=== PATIENT | male | born 1955 | race Caucasian/White ===

== ENCOUNTER → 2023-11-19 16:58 | Outpatient (CLI) | payer MEDICARE, BC, SELFPAY ==
[2023-11-19 19:08] LABS: Vitamin B12 565 pg/mL (239-931)
[2023-11-20 16:15] LABS: Hep C Virus Ab w/Reflex Quant REACTIVE s/c (NEGATIVE)
== END ==
PROVIDERS: Family Provider Family Medicine; PCP Family Medicine; Referring Provider Family Medicine; Visit Provider Family Medicine
DX: E78.5 Hyperlipidemia, unspecified (principal); M54.50 Low back pain, unspecified; G89.29 Other chronic pain; F31.9 Bipolar disorder, unspecified
CPT/HCPCS: 36415; 82607; 86803; 87522

== ENCOUNTER → 2023-12-08 09:12 | Outpatient (CLI) | payer MEDICARE, BC, SELFPAY ==
[2023-12-08 09:51] LABS: Add Manual Diff / Slide Review NO; Basophils Absolute Auto 0 /uL (0-100); Basophils Percent Auto 0.9 % (0-2); Eosinophils Absolute Auto 200 /uL (0-450); Eosinophils Percent Auto 3.7 % (2-4); Lymphocytes Absolute Auto 900 /uL (1100-4500); Lymphocytes Percent Auto 19.4 % (25-40); Mean Corpuscular HGB Conc 34.2 % (30-36); Mean Corpuscular Hemoglobin 33.7 PG (26-34); Mean Corpuscular Volume 98.6 fL (80-100); Monocytes Absolute Auto 500 /uL (0-900); Monocytes Percent Auto 10.8 % (3-14); Neutrophils Absolute Auto 3100 /uL (1500-7000); Neutrophils Percent Auto 65.2 % (50-75); Platelet Count 336 X10^3/uL (150-400); Red Blood Cell Count 3.86 X10^6/uL (4.5-5.9); Red Cell Distribution Width 13.9 % (11.6-14.8); White Blood Cell Count 4.8 X10^3/uL (4.5-11.0)
[2023-12-08 10:11] LABS: Alanine Aminotransferase 26 IU/L (<50); Albumin 4.3 g/dL (3.5-5.0); Albumin Globulin Ratio 1.8 (1.0-2.8); Alkaline Phosphatase 71 U/L (38-126); Aspartate Aminotransferase 29 IU/L (17-59); BUN Creatinine Ratio 16.7 (6-22); Bilirubin Total 0.5 mg/dL (0.2-1.3); Blood Urea Nitrogen 19 mg/dL (9-20); Calcium 9.4 mg/dL (8.4-10.2); Carbon Dioxide 26 mmol/L (22-32); Chloride 108 mmol/L (98-107); Cholesterol 185 mg/dL (140-199); Estimated Glomerular Filt Rate > 60 mL/min (>60); Globulin 2.4 g/dL (1.7-4.1); Glucose 100 mg/dL (80-110); HDL Cholesterol 67 mg/dL (40-60); HEMOLYSIS < 15 (0-50); LDL Cholesterol Calculated 92 mg/dL (<100); Potassium 5.2 mmol/L (3.4-5.1); Sodium 138 mmol/L (137-145); Total Protein 6.7 g/dL (6.3-8.2); Triglycerides 132 mg/dL (35-150)
[2023-12-08 10:41] LABS: TSH w/ Reflex to FT4 0.79 uIU/mL (0.47-4.68)
[2023-12-08 10:59] LABS: Vitamin B12 588 pg/mL (239-931)
== END ==
PROVIDERS: Family Provider Family Medicine; PCP Family Medicine; Referring Provider Family Medicine; Visit Provider Family Medicine
DX: E78.2 Mixed hyperlipidemia (principal); K22.70 Barrett's esophagus without dysplasia; R53.83 Other fatigue
CPT/HCPCS: 36415; 80053; 80061; 82607; 84443; 85025

== ENCOUNTER 2023-12-31 09:45 | Outpatient (RCR) | payer MEDICARE, BC, SELFPAY ==
--- NOTE | 2023-10-29 10:14 | PT.OIE ---
Current Diagnoses Other chronic pain (10/29/23) Low back pain, unspecified (10/29/23) Past Medical History (Last Updated 10/28/23 @ 21:30 by Dianna Stone) Aldrich's esophagus Bipolar 1 disorder Cataracts, bilateral (~2019) Chronic low back pain Hearing loss (~2014) Hepatitis C Prostate cancer (~2020) Tinnitus (~1999) Past Surgical History (Last Updated 10/28/23 @ 21:30 by Dianna Stone) Anesthesia History of laminectomy (~07/2023) Visit Care Team Role Provider Type Kellen Villafuerte DO Attending Provider Physician Family Provider Primary Care Provider Referring Provider Specialty: Family Practice Address: [address] [place] [address], [facility] [address], [place], [facility] Email: [email or web address] [facility] Initial Evaluation PT-OP-A Visit Information Start: 10/28/23 07:26 Freq: Status: Active Protocol: Document 10/29/23 08:19 MB (Rec: 10/29/23 08:56 [id number]) Out-Patient Physical Therapy Visit Information Visit Information Visit Type Initial Evaluation Visit Note Medicare, for Life Visit Start Time 08:19 Visit Stop Time 08:59 Visit Number 1 Number of HEATER HELPER FORGE Visits 0 Evaluation Information Evaluation Date 10/29/23 Precautions Precautions Lami L2-14 July 2023 PT-OP-B Current Condition Start: 10/28/23 07:26 Freq: Status: Active Protocol: Document 10/29/23 08:19 MB (Rec: 10/29/23 08:56 [id number]) Current Condition History of Current Condition Onset Date Back surgery July 2023 Current Complaints Leg fatigue and left SI pain and anterior left thigh pain History of Current Condition Pt reports laminectomy L2,3,4 in [place] in July of this year. Pt reports progressive history of feet going numb and sciatic pain. 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 Pt got PT in [place]. He brings in exercises. He was getting better and then he began to reverse. A week and a half ago, a pipe burst in the house and he was pulling up pipe and he has no place to exercise. Pt saw pain specialist and they are talking about doing injections starting November 19. Generally, he sleeps pretty good. He does not use pillow support between legs. Prior Treatments and Tests Laminectomy, PT Treatment Goals Patient/Caregiver Goals Decrease the pain and to return to strengthening PT-OP-C Subjective Start: 10/28/23 07:26 Freq: Status: Active Protocol: Document 10/29/23 08:19 MB (Rec: 10/29/23 08:56 MB [id number]) OP-PT Subjective Patient Comments Patient Comments See history of current condition Patient Questionnaires Oswestry Low Back Index Oswestry Score 15 Oswestry Impairment 20 to 39% Impaired (Score 20- 39) PT-OP-G Mobility & Gait Start: 10/28/23 07:26 Freq: Status: Active Protocol: Document 10/29/23 08:19 MB (Rec: 10/29/23 08:56 MB [id number]) OP Gait Assessment Comments Gait Comments Gait assessment: pt does not always clear right foot and he presents with little arm swing and pelvic movement with gait as well as descreased step-length with gait PT-OP-J Posture/Palpation/Skin Start: 10/28/23 07:26 Freq: Status: Active Protocol: Document 10/29/23 08:19 MB (Rec: 10/29/23 08:56 MB [id number]) Posture Evaluation Comments Posture Comments Standing in barefoot: lower thoracic and upper lumbar hypertension, protrusion at paraspinal muscles and no real convexity right or left; right inferior scapula lower than the left; mild left convexity mid thoracic spine; left iliac crest mildly higher than the right; B flat feet and he reports arthritis in feet and more noticeable on the left, increased Sapphire angle , greater on the right. Very limited B SB, greater to the left and scar left side lumbar area; flexion with fingers almost one foot off the ground, normal posture with trunk mildly flexed over pelvis and active extension moves posture into neutral and pt reports increased left thigh pain PT-OP-K Range of Motion Start: 10/28/23 07:26 Freq: Status: Active Protocol: Document 10/29/23 08:19 MB (Rec: 10/29/23 08:56 MB [id number]) Hip Goniometric Range of Motion Hip ROM Limitations Comments SLR passive: right to 50 deg and left to 40 deg PT-OP-M Strength Start: 10/28/23 07:26 Freq: Status: Active Protocol: Document 10/29/23 08:19 MB (Rec: 10/29/23 08:56 MB [id number]) Hip Strength Hip Manual Muscle Testing Left Flexion (L2) 4- Good- Extension (S1) 4 Good Abduction 4 Good Adduction 4 Good Right Flexion (L2) 4+ Good+ Extension (S1) 4 Good Abduction 4+ Good+ Adduction 4+ Good+ Comments All MMT in supine Knee Strength Knee Manual Muscle Testing Left Flexion (S2) 5 Normal Extension (L3) 4+ Good+ Comments *with MMT knee, left great toe curls into flexion Right Flexion (S2) 5 Normal Extension (L3) 5 Normal Ankle/Foot Strength Ankle and Foot Manual Muscle Testing Left Dorsiflexion (L4) 5 Normal Right Dorsiflexion (L4) 5 Normal Toe Strength Toe Manual Muscle Testing Left Great Toe Extension 5 Normal Right Great Toe Extension 5 Normal Comments B plantar feet numbness PT-OP-Q Treatments Start: 10/28/23 07:26 Freq: Status: Active Protocol: Document 10/29/23 08:19 MB (Rec: 10/29/23 08:56 MB [id number]) Therapeutic Exercises Supine Exercises Pelvic realignment exercises Side bilateral Reps/Minutes 5 reps, 3 sec hold all exercises Comments Feet together ball squeeze, knee opp ankle iso, thigh press down Self-Care/Home Management Treatment Education Other Education Benefits of pillow support between legs in sidelying for sleeping and education about brian out [facility] and pt is agreeable to this PT-OP-T Assessment and Plan Start: 10/28/23 07:26 Freq: Status: Active Protocol: Document 10/29/23 08:19 MB (Rec: 10/29/23 08:56 MB [id number]) Physical Therapy Assessment Rehab Potential Rehabilitation Potential Fair Evaluation Complexity Number of Personal Factors/Comorbidities 1-2 Number of Body Systems Impaired 1-2 Clinical Presentation at Evaluation Evolving Impairments Impairments Balance,Gait,Pain,Posture,ROM, Sensation,Soft Tissue Mobility ,Strength Goals 3 Impairment Need for HEP review and progression Painter Plate Goal (LTG) Pt will perform progressive HEP with I including pelvic realignment, flexibility, balance and core and LE strengthening exercises to improve pain and strength. LTG Duration 8 weeks 2 Impairment Evidence of imbalance and c/o fatigue with increased gait distance Painter Plate Goal (LTG) Pt will gait train at least 1300 feet in 6 minutes to improve community ambulation and functional leg strength when spine loaded. LTG Duration 8 weeks 1 Impairment Oswestry reflects 24% impairment Halfway Goal (LTG) Pt will present with Oswestry to reflect no more than 15% impairment to improve quality of life and pain. 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 He reports undergoing laminectomy L2-4 in July when in [place]. He and will live [address] [facility] and 6 months in [place]. They are remodeling their home here and he states that he had contracted out most of the work but states they did have to tear up [place] last week. He was getting PT in [place] and was doing better but then had a decline with recurrence of leg weakness when up walking and left thigh and left SI pain. He presents with pelvic oliquities, decreased spinal mobility and left hip weakness today. He scuffs his right foot with gait. He will benefit from PT to improve pelvic alignment, flexibility, strength and balance. Barriers include known spinal changes and multi-joint arthritis. Pt is agreeable to ongoing brian out of heavy labor with remodel, sleeping position education to support pelvis, consider getting into the pool and PT plan for OPPT. Physical Therapy Plan Frequency and Duration Frequency of Treatment 2x/Week Duration of treatment (weeks) 8 Plan of Care Start Date 10/29/23 Plan of Care End Date 12/29/23 Therapeutic Interventions Therapeutic Interventions Balance Training,Canalithic Repositioning,Gait Training, Home Exercise Program,Joint Mobilizations,Manual Therapy, Neuromuscular Re-education, Patient/Caregiver Education, Self-Care/Home Management,Soft Tissue Mobilization,Taping, Therapeutic Activities, Therapeutic Exercises Modalities Cold Pack/Ice Massage,Electric Stimulation,Hot Packs, Ultrasound Next Visit Focus/Plan Next Note Type Treatment Note Next Visit Plan Review pelvic realignment exercises, review exercises he brings in from previous PTs, initiate manual work
--- NOTE | 2023-10-29 10:14 | PT.OPPOC ---
Physical, Occupational & Speech Therapy At [facility] Current Diagnoses Other chronic pain (10/29/23) Low back pain, unspecified (10/29/23) Visit Care Team Role Provider Type Kellen Villafuerte DO Attending Provider Physician Family Provider Primary Care Provider Referring Provider Specialty: Family Practice Address: [address] [place] [address], [address], [facility] Email: [email or web address] Plan Of Care PT-OP-T Assessment and Plan Start: 10/28/23 07:26 Freq: Status: Active Protocol: Document 10/29/23 08:19 MB (Rec: 10/29/23 08:56 MB [id number]) Physical Therapy Assessment Rehab Potential Rehabilitation Potential Fair Evaluation Complexity Number of Personal Factors/Comorbidities 1-2 Number of Body Systems Impaired 1-2 Clinical Presentation at Evaluation Evolving Impairments Impairments Balance,Gait,Pain,Posture,ROM, Sensation,Soft Tissue Mobility ,Strength Goals 3 Impairment Need for HEP review and progression Senior Care Goal (LTG) Pt will perform progressive HEP with I including pelvic realignment, flexibility, balance and core and LE strengthening exercises to improve pain and strength. LTG Duration 8 weeks 2 Impairment Evidence of imbalance and c/o fatigue with increased gait distance Senior Care Goal (LTG) Pt will gait train at least 1300 feet in 6 minutes to improve community ambulation and functional leg strength when spine loaded. LTG Duration 8 weeks 1 Impairment Oswestry reflects 24% impairment Service Car Operator Goal (LTG) Pt will present with Oswestry to reflect no more than 15% impairment to improve quality of life and pain. 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 He reports undergoing laminectomy L2-4 in July when in [place]. He and will live 6 months in [facility] and 6 months in [place]. They are remodeling their home here and he states that he had contracted out most of the work but states they did have to tear up [place] last week. He was getting PT in [place] and was doing better but then had a decline with recurrence of leg weakness when up walking and left thigh and left SI pain. He presents with pelvic oliquities, decreased spinal mobility and left hip weakness today. He scuffs his right foot with gait. He will benefit from PT to improve pelvic alignment, flexibility, strength and balance. Barriers include known spinal changes and multi-joint arthritis. Pt is agreeable to ongoing brian out of heavy labor with remodel, sleeping position education to support pelvis, consider getting into the pool and PT plan for OPPT. Physical Therapy Plan Frequency and Duration Frequency of Treatment 2x/Week Duration of treatment (weeks) 8 Plan of Care Start Date 10/29/23 Plan of Care End Date 12/29/23 Therapeutic Interventions Therapeutic Interventions Balance Training,Canalithic Repositioning,Gait Training, Home Exercise Program,Joint Mobilizations,Manual Therapy, Neuromuscular Re-education, Patient/Caregiver Education, Self-Care/Home Management,Soft Tissue Mobilization,Taping, Therapeutic Activities, Therapeutic Exercises Modalities Cold Pack/Ice Massage,Electric Stimulation,Hot Packs, Ultrasound Next Visit Focus/Plan Next Note Type Treatment Note Next Visit Plan Review pelvic realignment exercises, review exercises he brings in from previous PTs, initiate manual work Plan of Care Dates Plan of Care Start Date 10/29/23 Plan of Care End Date 12/29/23 Electronically Signed by: Meron Ríos, PT 10/29/23 1014 If you are in agreement with this Plan of Care, please return a signed and dated copy. I have reviewed this Plan of Care and certify that the skilled therapy services above are required to meet the patient?s needs. Physician Signature Date Printed Name and Credentials Clinical Instructor Signature Printed Name and Credentials
--- NOTE | 2023-11-03 09:01 | PT.OTN ---
Current Diagnoses Other chronic pain (11/03/23) Low back pain, unspecified (11/03/23) Physical Therapy Treatment Note PT-OP-A Visit Information Start: 10/28/23 07:26 Freq: Status: Active Protocol: Document 11/03/23 08:15 MB (Rec: 11/03/23 09:00 MB [id number]) Out-Patient Physical Therapy Visit Information Visit Information Visit Type Treatment Note Visit Note Medicare, for Life Progress note by 11/28/23 or before Visit Start Time 08:15 Visit Stop Time 08:55 Visit Number 2 Number of TELEMETRY NURSE Visits 0 Evaluation Information Evaluation Date 10/29/23 Precautions Precautions Lami L2-14 July 2023 PT-OP-B Current Condition Start: 10/28/23 07:26 Freq: Status: Active Protocol: Document 10/29/23 08:19 MB (Rec: 10/29/23 08:56 MB [id number]) Current Condition History of Current Condition Onset Date Back surgery July 2023 Current Complaints Leg fatigue and left SI pain and anterior left thigh pain History of Current Condition Pt reports laminectomy L2,3,4 in [place] in July of this year. Pt reports progressive history of feet going numb and sciatic pain. 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 Pt got PT in [place]. He brings in exercises. He was getting better and then he began to reverse. A week and a half ago, a pipe burst in the house and he was pulling up pipe and he has no place to exercise. Pt saw pain specialist and they are talking about doing injections starting November 19. Generally, he sleeps pretty good. He does not use pillow support between legs. Prior Treatments and Tests Laminectomy, PT Treatment Goals Patient/Caregiver Goals Decrease the pain and to return to strengthening PT-OP-C Subjective Start: 10/28/23 07:26 Freq: Status: Active Protocol: Document 11/03/23 08:15 MB (Rec: 11/03/23 09:00 MB [id number]) OP-PT Subjective Patient Comments Patient Comments Pt forgot his HEP exercise handouts from [place]. He took a lot of medication and went dancing on Friday night. PT-OP-G Mobility & Gait Start: 10/28/23 07:26 Freq: Status: Active Protocol: Document 10/29/23 08:19 MB (Rec: 10/29/23 08:56 MB [id number]) OP Gait Assessment Comments Gait Comments Gait assessment: pt does not always clear right foot and he presents with little arm swing and pelvic movement with gait as well as descreased step-length with gait PT-OP-J Posture/Palpation/Skin Start: 10/28/23 07:26 Freq: Status: Active Protocol: Document 10/29/23 08:19 MB (Rec: 10/29/23 08:56 MB [id number]) Posture Evaluation Comments Posture Comments Standing in barefoot: lower thoracic and upper lumbar hypertension, protrusion at paraspinal muscles and no real convexity right or left; right inferior scapula lower than the left; mild left convexity mid thoracic spine; left iliac crest mildly higher than the right; B flat feet and he reports arthritis in feet and more noticeable on the left, increased Sapphire angle , greater on the right. Very limited B SB, greater to the left and scar left side lumbar area; flexion with fingers almost one foot off the ground, normal posture with trunk mildly flexed over pelvis and active extension moves posture into neutral and pt reports increased left thigh pain PT-OP-K Range of Motion Start: 10/28/23 07:26 Freq: Status: Active Protocol: Document 10/29/23 08:19 MB (Rec: 10/29/23 08:56 MB [id number]) Hip Goniometric Range of Motion Hip ROM Limitations Comments SLR passive: right to 50 deg and left to 40 deg PT-OP-M Strength Start: 10/28/23 07:26 Freq: Status: Active Protocol: Document 10/29/23 08:19 MB (Rec: 10/29/23 08:56 MB [id number]) Hip Strength Hip Manual Muscle Testing Left Flexion (L2) 4- Good- Extension (S1) 4 Good Abduction 4 Good Adduction 4 Good Right Flexion (L2) 4+ Good+ Extension (S1) 4 Good Abduction 4+ Good+ Adduction 4+ Good+ Comments All MMT in supine Knee Strength Knee Manual Muscle Testing Left Flexion (S2) 5 Normal Extension (L3) 4+ Good+ Comments *with MMT knee, left great toe curls into flexion Right Flexion (S2) 5 Normal Extension (L3) 5 Normal Ankle/Foot Strength Ankle and Foot Manual Muscle Testing Left Dorsiflexion (L4) 5 Normal Right Dorsiflexion (L4) 5 Normal Toe Strength Toe Manual Muscle Testing Left Great Toe Extension 5 Normal Right Great Toe Extension 5 Normal Comments B plantar feet numbness PT-OP-Q Treatments Start: 10/28/23 07:26 Freq: Status: Active Protocol: Document 11/03/23 08:15 MB (Rec: 11/03/23 09:00 MB [id number]) Therapeutic Exercises Supine Exercises MWM hamstring and calf stretch Comments 30-40 pumps of calf of stretching leg Hip rotator stretch Comments Ankle across opposite knee in hook lying and feels in hip Hook lying clam Comments Pt demo and states that he uses a band and ed to perform lightly Bridge Comments Pt demos this and reports pressing out with band and states gentle Pelvic realignment exercises Side bilateral Reps/Minutes 5 reps, 3 sec hold all exercises Comments Feet together ball squeeze, knee opp ankle iso, thigh press down Sidelying Exercises Hip extension Comments Demo with rocking pelvis moves and ed to stop Sitting Exercises Long sitting stretch over leg Comments Tight hamstring and twist, ed to stop Standing Exercises Heel raises Comments Ed to perform with one finger on the counter STS Comments Pt demonstrates and is performing for strengthening, 30 reps Adductor stretch Comments Leaning over counter, flex foward and gentle lean side to side Manual Therapy Treatment Other Other Manual Treatments Pt hook lying with head and legs supported: increased tension B PFs, hamstrings, vastus lateralis and tight right hip, STM and positional release and will benefit from more work PT-OP-T Assessment and Plan Start: 10/28/23 07:26 Freq: Status: Active Protocol: Document 11/03/23 08:15 MB (Rec: 11/03/23 09:00 MB [id number]) Physical Therapy Assessment Rehab Potential Rehabilitation Potential Fair Evaluation Complexity Number of Personal Factors/Comorbidities 1-2 Number of Body Systems Impaired 1-2 Clinical Presentation at Evaluation Evolving Impairments Impairments Balance,Gait,Pain,Posture,ROM, Sensation,Soft Tissue Mobility ,Strength Goals 3 Impairment Need for HEP review and progression Weigh Tank Operator Goal (LTG) Pt will perform progressive HEP with I including pelvic realignment, flexibility, balance and core and LE strengthening exercises to improve pain and strength. LTG Duration 8 weeks 2 Impairment Evidence of imbalance and c/o fatigue with increased gait distance Weigh Tank Operator Goal (LTG) Pt will gait train at least 1300 feet in 6 minutes to improve community ambulation and functional leg strength when spine loaded. LTG Duration 8 weeks 1 Impairment Oswestry reflects 24% impairment Mcc Goal (LTG) Pt will present with Oswestry to reflect no more than 15% impairment to improve quality of life and pain. LTG Duration 8 weeks Assessment Summary Assessment Pt demos exercises he remembers from previous PTs and took out several that push hamstring and spine ability. Ed pt to start gaining awareness of gentle stretching . Physical Therapy Plan Frequency and Duration Frequency of Treatment 2x/Week Duration of treatment (weeks) 8 Plan of Care Start Date 10/29/23 Plan of Care End Date 12/29/23 Therapeutic Interventions Therapeutic Interventions Balance Training,Canalithic Repositioning,Gait Training, Home Exercise Program,Joint Mobilizations,Manual Therapy, Neuromuscular Re-education, Patient/Caregiver Education, Self-Care/Home Management,Soft Tissue Mobilization,Taping, Therapeutic Activities, Therapeutic Exercises Modalities Cold Pack/Ice Massage,Electric Stimulation,Hot Packs, Ultrasound Next Visit Focus/Plan Next Note Type Treatment Note Next Visit Plan Review exercises he brings in from previous PTs, manual work Eventually, consider [place] and add hip extension and ankle DF and ER
--- NOTE | 2023-11-05 09:45 | PT.OTN ---
Current Diagnoses Other chronic pain (11/05/23) Low back pain, unspecified (11/05/23) Physical Therapy Treatment Note PT-OP-A Visit Information Start: 10/28/23 07:26 Freq: Status: Active Protocol: Document 11/05/23 08:59 MB (Rec: 11/05/23 09:44 MB [id number]) Out-Patient Physical Therapy Visit Information Visit Information Visit Type Treatment Note Visit Note Medicare, for Life Progress note by 11/28/23 or before Visit Start Time 08:59 Visit Stop Time 09:39 Visit Number 3 Number of TRANSPORTER DRIVER Visits 0 Evaluation Information Evaluation Date 10/29/23 Precautions Precautions Lami L2-14 July 2023 PT-OP-B Current Condition Start: 10/28/23 07:26 Freq: Status: Active Protocol: Document 10/29/23 08:19 MB (Rec: 10/29/23 08:56 MB [id number]) Current Condition History of Current Condition Onset Date Back surgery July 2023 Current Complaints Leg fatigue and left SI pain and anterior left thigh pain History of Current Condition Pt reports laminectomy L2,3,4 in [place] in July of this year. Pt reports progressive history of feet going numb and sciatic pain. 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 Pt got PT in [place]. He brings in exercises. He was getting better and then he began to reverse. A week and a half ago, a pipe burst in the house and he was pulling up pipe and he has no place to exercise. Pt saw pain specialist and they are talking about doing injections starting November 19. Generally, he sleeps pretty good. He does not use pillow support between legs. Prior Treatments and Tests Laminectomy, PT Treatment Goals Patient/Caregiver Goals Decrease the pain and to return to strengthening PT-OP-C Subjective Start: 10/28/23 07:26 Freq: Status: Active Protocol: Document 11/05/23 08:59 MB (Rec: 11/05/23 09:44 MB [id number]) OP-PT Subjective Patient Comments Patient Comments Pt left his handouts from [place] at home again. PT-OP-G Mobility & Gait Start: 10/28/23 07:26 Freq: Status: Active Protocol: Document 10/29/23 08:19 MB (Rec: 10/29/23 08:56 MB [id number]) OP Gait Assessment Comments Gait Comments Gait assessment: pt does not always clear right foot and he presents with little arm swing and pelvic movement with gait as well as descreased step-length with gait PT-OP-J Posture/Palpation/Skin Start: 10/28/23 07:26 Freq: Status: Active Protocol: Document 10/29/23 08:19 MB (Rec: 10/29/23 08:56 MB [id number]) Posture Evaluation Comments Posture Comments Standing in barefoot: lower thoracic and upper lumbar hypertension, protrusion at paraspinal muscles and no real convexity right or left; right inferior scapula lower than the left; mild left convexity mid thoracic spine; left iliac crest mildly higher than the right; B flat feet and he reports arthritis in feet and more noticeable on the left, increased Sapphire angle , greater on the right. Very limited B SB, greater to the left and scar left side lumbar area; flexion with fingers almost one foot off the ground, normal posture with trunk mildly flexed over pelvis and active extension moves posture into neutral and pt reports increased left thigh pain PT-OP-K Range of Motion Start: 10/28/23 07:26 Freq: Status: Active Protocol: Document 10/29/23 08:19 MB (Rec: 10/29/23 08:56 MB [id number]) Hip Goniometric Range of Motion Hip ROM Limitations Comments SLR passive: right to 50 deg and left to 40 deg PT-OP-M Strength Start: 10/28/23 07:26 Freq: Status: Active Protocol: Document 10/29/23 08:19 MB (Rec: 10/29/23 08:56 MB [id number]) Hip Strength Hip Manual Muscle Testing Left Flexion (L2) 4- Good- Extension (S1) 4 Good Abduction 4 Good Adduction 4 Good Right Flexion (L2) 4+ Good+ Extension (S1) 4 Good Abduction 4+ Good+ Adduction 4+ Good+ Comments All MMT in supine Knee Strength Knee Manual Muscle Testing Left Flexion (S2) 5 Normal Extension (L3) 4+ Good+ Comments *with MMT knee, left great toe curls into flexion Right Flexion (S2) 5 Normal Extension (L3) 5 Normal Ankle/Foot Strength Ankle and Foot Manual Muscle Testing Left Dorsiflexion (L4) 5 Normal Right Dorsiflexion (L4) 5 Normal Toe Strength Toe Manual Muscle Testing Left Great Toe Extension 5 Normal Right Great Toe Extension 5 Normal Comments B plantar feet numbness PT-OP-Q Treatments Start: 10/28/23 07:26 Freq: Status: Active Protocol: Document 11/05/23 08:59 MB (Rec: 11/05/23 09:44 MB [id number]) Therapeutic Exercises Supine Exercises Raz stretch Side bilateral Comments Opposite knee to chest, 45 sec hold MWM hamstring and calf stretch Comments 30-40 pumps of calf of stretching leg Hip rotator stretch Comments Ankle across opposite knee in hook lying and feels in hip Pelvic realignment exercises Side bilateral Reps/Minutes 5 reps, 3 sec hold all exercises Comments Feet together ball squeeze, knee opp ankle iso, thigh press down Standing Exercises Calf stretch Side bilateral Comments Knee bent and knee straight, 30 sec hold each Manual Therapy Treatment Consent Patient gave verbal consent for manual Yes treatment Other Other Manual Treatments Kneeling over foam wedge: STM thoracolumbar paraspinals, thoracic paraspinals, superior glute max, QL B PT-OP-T Assessment and Plan Start: 10/28/23 07:26 Freq: Status: Active Protocol: Document 11/05/23 08:59 MB (Rec: 11/05/23 09:44 MB [id number]) Physical Therapy Assessment Rehab Potential Rehabilitation Potential Fair Evaluation Complexity Number of Personal Factors/Comorbidities 1-2 Number of Body Systems Impaired 1-2 Clinical Presentation at Evaluation Evolving Impairments Impairments Balance,Gait,Pain,Posture,ROM, Sensation,Soft Tissue Mobility ,Strength Goals 3 Impairment Need for HEP review and progression Bonsai Culturist Goal (LTG) Pt will perform progressive HEP with I including pelvic realignment, flexibility, balance and core and LE strengthening exercises to improve pain and strength. LTG Duration 8 weeks 2 Impairment Evidence of imbalance and c/o fatigue with increased gait distance Bonsai Culturist Goal (LTG) Pt will gait train at least 1300 feet in 6 minutes to improve community ambulation and functional leg strength when spine loaded. LTG Duration 8 weeks 1 Impairment Oswestry reflects 24% impairment Prison Goal (LTG) Pt will present with Oswestry to reflect no more than 15% impairment to improve quality of life and pain. LTG Duration 8 weeks Assessment Summary Assessment Pt forgot [place] PT handouts again . Progressed LE flexibility. Pt has spinal injection next week and will monitor how he feels then. Physical Therapy Plan Frequency and Duration Frequency of Treatment 2x/Week Duration of treatment (weeks) 8 Plan of Care Start Date 10/29/23 Plan of Care End Date 12/29/23 Therapeutic Interventions Therapeutic Interventions Balance Training,Canalithic Repositioning,Gait Training, Home Exercise Program,Joint Mobilizations,Manual Therapy, Neuromuscular Re-education, Patient/Caregiver Education, Self-Care/Home Management,Soft Tissue Mobilization,Taping, Therapeutic Activities, Therapeutic Exercises Modalities Cold Pack/Ice Massage,Electric Stimulation,Hot Packs, Ultrasound Next Visit Focus/Plan Next Note Type Treatment Note Next Visit Plan Review exercises he brings in from previous PTs, manual work Eventually, consider [place] and add hip extension and ankle DF and ER, consider gentle core progression starting in hook lying: bridge may NOT be a good one for pt
--- NOTE | 2023-11-10 09:39 | PT.OTN ---
Current Diagnoses Other chronic pain (11/10/23) Low back pain, unspecified (11/10/23) Physical Therapy Treatment Note PT-OP-A Visit Information Start: 10/28/23 07:26 Freq: Status: Active Protocol: Document 11/10/23 08:59 MB (Rec: 11/10/23 09:38 MB [id number]) Out-Patient Physical Therapy Visit Information Visit Information Visit Type Treatment Note Visit Note Medicare, for Life Progress note by 11/28/23 or before Visit Start Time 08:59 Visit Stop Time 09:39 Visit Number 4 Number of CAN FEEDER Visits 0 Evaluation Information Evaluation Date 10/29/23 Precautions Precautions Lami L2-14 July 2023 PT-OP-B Current Condition Start: 10/28/23 07:26 Freq: Status: Active Protocol: Document 10/29/23 08:19 MB (Rec: 10/29/23 08:56 MB [id number]) Current Condition History of Current Condition Onset Date Back surgery July 2023 Current Complaints Leg fatigue and left SI pain and anterior left thigh pain History of Current Condition Pt reports laminectomy L2,3,4 in [place] in July of this year. Pt reports progressive history of feet going numb and sciatic pain. 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 Pt got PT in [place]. He brings in exercises. He was getting better and then he began to reverse. A week and a half ago, a pipe burst in the house and he was pulling up pipe and he has no place to exercise. Pt saw pain specialist and they are talking about doing injections starting November 19. Generally, he sleeps pretty good. He does not use pillow support between legs. Prior Treatments and Tests Laminectomy, PT Treatment Goals Patient/Caregiver Goals Decrease the pain and to return to strengthening PT-OP-C Subjective Start: 10/28/23 07:26 Freq: Status: Active Protocol: Document 11/10/23 08:59 MB (Rec: 11/10/23 09:38 MB [id number]) OP-PT Subjective Patient Comments Patient Comments Pt states that he is okay. The pain in his left thigh is difused today. He walked a lot yesterday. He brings in PT handouts PT-OP-G Mobility & Gait Start: 10/28/23 07:26 Freq: Status: Active Protocol: Document 10/29/23 08:19 MB (Rec: 10/29/23 08:56 MB [id number]) OP Gait Assessment Comments Gait Comments Gait assessment: pt does not always clear right foot and he presents with little arm swing and pelvic movement with gait as well as descreased step-length with gait PT-OP-J Posture/Palpation/Skin Start: 10/28/23 07:26 Freq: Status: Active Protocol: Document 10/29/23 08:19 MB (Rec: 10/29/23 08:56 MB [id number]) Posture Evaluation Comments Posture Comments Standing in barefoot: lower thoracic and upper lumbar hypertension, protrusion at paraspinal muscles and no real convexity right or left; right inferior scapula lower than the left; mild left convexity mid thoracic spine; left iliac crest mildly higher than the right; B flat feet and he reports arthritis in feet and more noticeable on the left, increased Sapphire angle , greater on the right. Very limited B SB, greater to the left and scar left side lumbar area; flexion with fingers almost one foot off the ground, normal posture with trunk mildly flexed over pelvis and active extension moves posture into neutral and pt reports increased left thigh pain PT-OP-K Range of Motion Start: 10/28/23 07:26 Freq: Status: Active Protocol: Document 10/29/23 08:19 MB (Rec: 10/29/23 08:56 MB [id number]) Hip Goniometric Range of Motion Hip ROM Limitations Comments SLR passive: right to 50 deg and left to 40 deg PT-OP-M Strength Start: 10/28/23 07:26 Freq: Status: Active Protocol: Document 10/29/23 08:19 MB (Rec: 10/29/23 08:56 MB [id number]) Hip Strength Hip Manual Muscle Testing Left Flexion (L2) 4- Good- Extension (S1) 4 Good Abduction 4 Good Adduction 4 Good Right Flexion (L2) 4+ Good+ Extension (S1) 4 Good Abduction 4+ Good+ Adduction 4+ Good+ Comments All MMT in supine Knee Strength Knee Manual Muscle Testing Left Flexion (S2) 5 Normal Extension (L3) 4+ Good+ Comments *with MMT knee, left great toe curls into flexion Right Flexion (S2) 5 Normal Extension (L3) 5 Normal Ankle/Foot Strength Ankle and Foot Manual Muscle Testing Left Dorsiflexion (L4) 5 Normal Right Dorsiflexion (L4) 5 Normal Toe Strength Toe Manual Muscle Testing Left Great Toe Extension 5 Normal Right Great Toe Extension 5 Normal Comments B plantar feet numbness PT-OP-Q Treatments Start: 10/28/23 07:26 Freq: Status: Active Protocol: Document 11/10/23 08:59 MB (Rec: 11/10/23 09:38 MB [id number]) Therapeutic Exercises Supine Exercises Raz stretch Side bilateral Comments Opposite knee to chest, 45 sec hold MWM hamstring and calf stretch Side bilateral Comments 30-40 pumps of calf of stretching leg Hip rotator stretch Side bilateral Reps/Minutes 1 rep, 45 sec-1 min Comments Ankle across opposite knee in hook lying and feels in hip Hook lying clam Side bilateral Resistance Level 2 band Reps/Minutes 10-30 reps at home, 3x/wk Comments Cues to squeeze glutes first Pelvic realignment exercises Side bilateral Reps/Minutes 5 reps, 3 sec hold all exercises Comments Feet together ball squeeze, knee opp ankle iso, thigh press down Standing Exercises Calf stretch Standing Exercise Name Toe raises for recovery after stretches Side bilateral Comments Knee bent and knee straight, 30 sec hold each Heel raises Comments Perform 10-30 reps at home after calf stretches and toe raises STS Resistance Level 2 band around knees Reps/Minutes 10-30 reps, 5-7x/wk at home Comments Performed from [facility] today Manual Therapy Treatment Other Other Manual Treatments Pt hook lying with head and legs supported: STM left vastus lateralis, hamstrings, hip rotators PT-OP-T Assessment and Plan Start: 10/28/23 07:26 Freq: Status: Active Protocol: Document 11/10/23 08:59 MB (Rec: 11/10/23 09:38 MB [id number]) Physical Therapy Assessment Rehab Potential Rehabilitation Potential Fair Evaluation Complexity Number of Personal Factors/Comorbidities 1-2 Number of Body Systems Impaired 1-2 Clinical Presentation at Evaluation Evolving Impairments Impairments Balance,Gait,Pain,Posture,ROM, Sensation,Soft Tissue Mobility ,Strength Goals 3 Impairment Need for HEP review and progression Senior Care Goal (LTG) Pt will perform progressive HEP with I including pelvic realignment, flexibility, balance and core and LE strengthening exercises to improve pain and strength. LTG Duration 8 weeks 2 Impairment Evidence of imbalance and c/o fatigue with increased gait distance Senior Care Goal (LTG) Pt will gait train at least 1300 feet in 6 minutes to improve community ambulation and functional leg strength when spine loaded. LTG Duration 8 weeks 1 Impairment Oswestry reflects 24% impairment Senior Care Goal (LTG) Pt will present with Oswestry to reflect no more than 15% impairment to improve quality of life and pain. LTG Duration 8 weeks Assessment Summary Assessment Pt has spinal injection next week, he states. Pt brings in handouts from [place] and reviewed handouts and got rid of several and condensed handouts and reviewed today. Physical Therapy Plan Frequency and Duration Frequency of Treatment 2x/Week Duration of treatment (weeks) 8 Plan of Care Start Date 10/29/23 Plan of Care End Date 12/29/23 Therapeutic Interventions Therapeutic Interventions Balance Training,Canalithic Repositioning,Gait Training, Home Exercise Program,Joint Mobilizations,Manual Therapy, Neuromuscular Re-education, Patient/Caregiver Education, Self-Care/Home Management,Soft Tissue Mobilization,Taping, Therapeutic Activities, Therapeutic Exercises Modalities Cold Pack/Ice Massage,Electric Stimulation,Hot Packs, Ultrasound Next Visit Focus/Plan Next Note Type Treatment Note Next Visit Plan Manual work, consider gentle core progression starting in hook lying: bridge may NOT be a good one for pt Eventually, consider [place] and add hip extension and ankle DF and ER
--- NOTE | 2023-11-12 09:48 | PT.OTN ---
Current Diagnoses Other chronic pain (11/12/23) Low back pain, unspecified (11/12/23) Physical Therapy Treatment Note PT-OP-A Visit Information Start: 10/28/23 07:26 Freq: Status: Active Protocol: Document 11/12/23 09:07 SP (Rec: 11/12/23 09:49 SP [id number]) Out-Patient Physical Therapy Visit Information Visit Information Visit Type Treatment Note Visit Note Medicare, for Life Progress note by 11/28/23 or since eval Visit Start Time 09:07 Visit Stop Time 09:48 Visit Number 5 Number of HARDWOOD SAWYER Visits 1 Evaluation Information Evaluation Date 10/29/23 Precautions Precautions Lami L2-14 July 2023 PT-OP-B Current Condition Start: 10/28/23 07:26 Freq: Status: Active Protocol: Document 10/29/23 08:19 MB (Rec: 10/29/23 08:56 MB [id number]) Current Condition History of Current Condition Onset Date Back surgery July 2023 Current Complaints Leg fatigue and left SI pain and anterior left thigh pain History of Current Condition Pt reports laminectomy L2,3,4 in [place] in July of this year. Pt reports progressive history of feet going numb and sciatic pain. 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 Pt got PT in [place]. He brings in exercises. He was getting better and then he began to reverse. A week and a half ago, a pipe burst in the house and he was pulling up pipe and he has no place to exercise. Pt saw pain specialist and they are talking about doing injections starting November 19. Generally, he sleeps pretty good. He does not use pillow support between legs. Prior Treatments and Tests Laminectomy, PT Treatment Goals Patient/Caregiver Goals Decrease the pain and to return to strengthening PT-OP-C Subjective Start: 10/28/23 07:26 Freq: Status: Active Protocol: Document 11/12/23 09:07 SP (Rec: 11/12/23 09:49 SP [id number]) OP-PT Subjective Patient Comments Patient Comments Started at pool with side stroke and noticed not sore as thought would be but ankles feel floppy and little increase in tingling in feet ( same sensation as during supine HS /c AP stretch). Is walking with trek poles with . Has Injection next Tues. Able get out of chair without arms now. PT-OP-G Mobility & Gait Start: 10/28/23 07:26 Freq: Status: Active Protocol: Document 10/29/23 08:19 MB (Rec: 10/29/23 08:56 MB [id number]) OP Gait Assessment Comments Gait Comments Gait assessment: pt does not always clear right foot and he presents with little arm swing and pelvic movement with gait as well as descreased step-length with gait PT-OP-J Posture/Palpation/Skin Start: 10/28/23 07:26 Freq: Status: Active Protocol: Document 10/29/23 08:19 MB (Rec: 10/29/23 08:56 MB [id number]) Posture Evaluation Comments Posture Comments Standing in barefoot: lower thoracic and upper lumbar hypertension, protrusion at paraspinal muscles and no real convexity right or left; right inferior scapula lower than the left; mild left convexity mid thoracic spine; left iliac crest mildly higher than the right; B flat feet and he reports arthritis in feet and more noticeable on the left, increased Sapphire angle , greater on the right. Very limited B SB, greater to the left and scar left side lumbar area; flexion with fingers almost one foot off the ground, normal posture with trunk mildly flexed over pelvis and active extension moves posture into neutral and pt reports increased left thigh pain PT-OP-K Range of Motion Start: 10/28/23 07:26 Freq: Status: Active Protocol: Document 10/29/23 08:19 MB (Rec: 10/29/23 08:56 MB [id number]) Hip Goniometric Range of Motion Hip ROM Limitations Comments SLR passive: right to 50 deg and left to 40 deg PT-OP-M Strength Start: 10/28/23 07:26 Freq: Status: Active Protocol: Document 10/29/23 08:19 MB (Rec: 10/29/23 08:56 MB [id number]) Hip Strength Hip Manual Muscle Testing Left Flexion (L2) 4- Good- Extension (S1) 4 Good Abduction 4 Good Adduction 4 Good Right Flexion (L2) 4+ Good+ Extension (S1) 4 Good Abduction 4+ Good+ Adduction 4+ Good+ Comments All MMT in supine Knee Strength Knee Manual Muscle Testing Left Flexion (S2) 5 Normal Extension (L3) 4+ Good+ Comments *with MMT knee, left great toe curls into flexion Right Flexion (S2) 5 Normal Extension (L3) 5 Normal Ankle/Foot Strength Ankle and Foot Manual Muscle Testing Left Dorsiflexion (L4) 5 Normal Right Dorsiflexion (L4) 5 Normal Toe Strength Toe Manual Muscle Testing Left Great Toe Extension 5 Normal Right Great Toe Extension 5 Normal Comments B plantar feet numbness PT-OP-Q Treatments Start: 10/28/23 07:26 Freq: Status: Active Protocol: Document 11/12/23 09:07 SP (Rec: 11/12/23 09:49 SP [id number]) Therapeutic Exercises Supine Exercises Raz stretch Supine Exercise Name Opposite knee to chest, Side bilateral Reps/Minutes 45 sec hold Comments cued allow knee toward floor before foot back- better hip flex stretch Hook lying clam Supine Exercise Name single Side bilateral Resistance Level 2 band at thighs Reps/Minutes 10-30 reps at home, 3x/wk Comments Cues back toward table, squeeze glutes first, hand at side, slower pacing Standing Exercises Calf stretch Standing Exercise Name Toe raises for recovery after stretches Side bilateral Equipment Used Lunge pos vs off bottom step Reps/Minutes 30 SH gastroc and soleus each Comments reports likes off bottom step Heel raises Standing Exercise Name heel raises & toe raises Equipment Used PRN contact chair Reps/Minutes 30 reps each Comments Improved height lift and less rock & dec PRN contact STS Resistance Level 2 band around knees Reps/Minutes 30 reps (5-7x/wk at home) Comments from mesh chair Other Exercises self STMs Other Exercise Name ed and demo/performance Side left Equipment Used rolling pin quad, HS, adductor , ITB, calf Comments good feedback massage PT-OP-T Assessment and Plan Start: 10/28/23 07:26 Freq: Status: Active Protocol: Document 11/12/23 09:07 SP (Rec: 11/12/23 09:49 SP [id number]) Physical Therapy Assessment Goals 3 Impairment Need for HEP review and progression Bituminous Paving Machine Operator Goal (LTG) Pt will perform progressive HEP with I including pelvic realignment, flexibility, balance and core and LE strengthening exercises to improve pain and strength. LTG Duration 8 weeks 2 Impairment Evidence of imbalance and c/o fatigue with increased gait distance Alf Goal (LTG) Pt will gait train at least 1300 feet in 6 minutes to improve community ambulation and functional leg strength when spine loaded. LTG Duration 8 weeks 1 Impairment Oswestry reflects 24% impairment Bituminous Paving Machine Operator Goal (LTG) Pt will present with Oswestry to reflect no more than 15% impairment to improve quality of life and pain. LTG Duration 8 weeks Assessment Summary Assessment Pt requested review HEP to be sure proper form. Improved heel raise and toe raise with cued focus lift and less rocking with education, able to progress lessening UE suppport. Cued TA draw in and slower sit initially improved reps, pleased not need use UE support anymore. Cued resisted clamshell single leg at time found gained more core engagement and able to keep back better toward table. Feels confident with stretching, ran out of time to get to all in PT today. Improved thigh stretch with cue allow leg relax toward floor and self STMs use rolling pin today. Physical Therapy Plan Frequency and Duration Frequency of Treatment 2x/Week Duration of treatment (weeks) 8 Plan of Care Start Date 10/29/23 Plan of Care End Date 12/29/23 Therapeutic Interventions Therapeutic Interventions Balance Training,Canalithic Repositioning,Gait Training, Home Exercise Program,Joint Mobilizations,Manual Therapy, Neuromuscular Re-education, Patient/Caregiver Education, Self-Care/Home Management,Soft Tissue Mobilization,Taping, Therapeutic Activities, Therapeutic Exercises Modalities Cold Pack/Ice Massage,Electric Stimulation,Hot Packs, Ultrasound Next Visit Focus/Plan Next Note Type Treatment Note Next Visit Plan CHeck single leg hooklying clamshell TA/pelvis better support home vs bilateral, self rolling pin quad if needed. Next trial core heel slide. Check how doing with goals. Can add more appt between 11/19 and 12/02, unless out of town? PT POC: Manual work consider gentle core progression starting in hook lying: bridge may NOT be a good one for pt Eventually, consider [place] and add hip extension and ankle DF and ER
--- NOTE | 2023-11-20 11:41 | PT.OTN ---
Current Diagnoses Other chronic pain (11/20/23) Low back pain, unspecified (11/20/23) Physical Therapy Treatment Note PT-OP-A Visit Information Start: 10/28/23 07:26 Freq: Status: Active Protocol: Document 11/20/23 10:35 SW (Rec: 11/20/23 11:40 SW [id number]) Out-Patient Physical Therapy Visit Information Visit Information Visit Type Treatment Note Visit Note Medicare, for Life Progress note by 11/28/23 or since eval Visit Start Time 10:30 Visit Stop Time 11:10 Visit Number 6 Number of TRANSPORTATION OPERATIONS MANAGER Visits 2 Precautions Precautions Lami L2-14 July 2023 PT-OP-B Current Condition Start: 10/28/23 07:26 Freq: Status: Active Protocol: Document 10/29/23 08:19 MB (Rec: 10/29/23 08:56 MB [id number]) Current Condition History of Current Condition Onset Date Back surgery July 2023 Current Complaints Leg fatigue and left SI pain and anterior left thigh pain History of Current Condition Pt reports laminectomy L2,3,4 in [place] in July of this year. Pt reports progressive history of feet going numb and sciatic pain. 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 Pt got PT in [place]. He brings in exercises. He was getting better and then he began to reverse. A week and a half ago, a pipe burst in the house and he was pulling up pipe and he has no place to exercise. Pt saw pain specialist and they are talking about doing injections starting November 19. Generally, he sleeps pretty good. He does not use pillow support between legs. Prior Treatments and Tests Laminectomy, PT Treatment Goals Patient/Caregiver Goals Decrease the pain and to return to strengthening PT-OP-C Subjective Start: 10/28/23 07:26 Freq: Status: Active Protocol: Document 11/20/23 10:35 SW (Rec: 11/20/23 11:40 SW [id number]) OP-PT Subjective Patient Comments Patient Comments Pt reports injection on Friday, no relief yet, reports will wait and see over the next two weeks to see if there is relief. PT-OP-G Mobility & Gait Start: 10/28/23 07:26 Freq: Status: Active Protocol: Document 10/29/23 08:19 MB (Rec: 10/29/23 08:56 MB [id number]) OP Gait Assessment Comments Gait Comments Gait assessment: pt does not always clear right foot and he presents with little arm swing and pelvic movement with gait as well as descreased step-length with gait PT-OP-J Posture/Palpation/Skin Start: 10/28/23 07:26 Freq: Status: Active Protocol: Document 10/29/23 08:19 MB (Rec: 10/29/23 08:56 MB [id number]) Posture Evaluation Comments Posture Comments Standing in barefoot: lower thoracic and upper lumbar hypertension, protrusion at paraspinal muscles and no real convexity right or left; right inferior scapula lower than the left; mild left convexity mid thoracic spine; left iliac crest mildly higher than the right; B flat feet and he reports arthritis in feet and more noticeable on the left, increased Sapphire angle , greater on the right. Very limited B SB, greater to the left and scar left side lumbar area; flexion with fingers almost one foot off the ground, normal posture with trunk mildly flexed over pelvis and active extension moves posture into neutral and pt reports increased left thigh pain PT-OP-K Range of Motion Start: 10/28/23 07:26 Freq: Status: Active Protocol: Document 10/29/23 08:19 MB (Rec: 10/29/23 08:56 MB [id number]) Hip Goniometric Range of Motion Hip ROM Limitations Comments SLR passive: right to 50 deg and left to 40 deg PT-OP-M Strength Start: 10/28/23 07:26 Freq: Status: Active Protocol: Document 10/29/23 08:19 MB (Rec: 10/29/23 08:56 MB [id number]) Hip Strength Hip Manual Muscle Testing Left Flexion (L2) 4- Good- Extension (S1) 4 Good Abduction 4 Good Adduction 4 Good Right Flexion (L2) 4+ Good+ Extension (S1) 4 Good Abduction 4+ Good+ Adduction 4+ Good+ Comments All MMT in supine Knee Strength Knee Manual Muscle Testing Left Flexion (S2) 5 Normal Extension (L3) 4+ Good+ Comments *with MMT knee, left great toe curls into flexion Right Flexion (S2) 5 Normal Extension (L3) 5 Normal Ankle/Foot Strength Ankle and Foot Manual Muscle Testing Left Dorsiflexion (L4) 5 Normal Right Dorsiflexion (L4) 5 Normal Toe Strength Toe Manual Muscle Testing Left Great Toe Extension 5 Normal Right Great Toe Extension 5 Normal Comments B plantar feet numbness PT-OP-Q Treatments Start: 10/28/23 07:26 Freq: Status: Active Protocol: Document 11/20/23 10:35 SW (Rec: 11/20/23 11:40 [id number]) Therapeutic Exercises Supine Exercises Core Supine Exercise Name 1.TA contraction w/tactile feedback 2.TA w/ heel slides Side bilateral Resistance AROM Equipment Used TRANSPORTATION OPERATIONS MANAGER/pt tactile feedback, pt consents to tactile feedback Reps/Minutes x15 ea Comments verbal/tactile cues to facilitate core stabilization Raz stretch Supine Exercise Name Opposite knee to chest, Side bilateral Reps/Minutes 45 sec hold Comments cued allow knee toward floor before foot back- better hip flex stretch Hip rotator stretch Side bilateral Reps/Minutes 1 rep, 45 sec-1 min Comments Ankle across opposite knee in hook lying and feels in hip Hook lying clam Supine Exercise Name single Side bilateral Resistance Level 2 band at thighs Reps/Minutes 10-30 reps at home, 3x/wk Comments Cues back toward table, squeeze glutes first, hand at side, slower pacing Pelvic realignment exercises Side bilateral Reps/Minutes 5 reps, 3 sec hold all exercises Comments Feet together ball squeeze, knee opp ankle iso, thigh press down Standing Exercises Calf stretch Standing Exercise Name gastroc/soleus Side bilateral Equipment Used Lunge pos vs off bottom step Heel raises Standing Exercise Name heel raises & toe raises Equipment Used PRN contact chair Reps/Minutes 30 reps each Comments cues for rocking, heel raise straight up PT-OP-T Assessment and Plan Start: 10/28/23 07:26 Freq: Status: Active Protocol: Document 11/20/23 10:35 SW (Rec: 11/20/23 11:40 [id number]) Physical Therapy Assessment Goals 3 Impairment Need for HEP review and progression Physical Damage Appraiser Goal (LTG) Pt will perform progressive HEP with I including pelvic realignment, flexibility, balance and core and LE strengthening exercises to improve pain and strength. LTG Duration 8 weeks 2 Impairment Evidence of imbalance and c/o fatigue with increased gait distance Physical Damage Appraiser Goal (LTG) Pt will gait train at least 1300 feet in 6 minutes to improve community ambulation and functional leg strength when spine loaded. LTG Duration 8 weeks 1 Impairment Oswestry reflects 24% impairment Physical Damage Appraiser Goal (LTG) Pt will present with Oswestry to reflect no more than 15% impairment to improve quality of life and pain. LTG Duration 8 weeks Assessment Summary Assessment Pt had spinal injection on Friday, reports minimal relief and waiting to see over the next two weeks to see if there is relief. Pt ambulated into session with minimal foot clearance, scuffing shoes on ground with increased pronation, pt education on importance of foot clearance during gait for safe ambulation, improved foot clearance with no scuffing ambulating out of session today. Reviewed exercises and focused on core stabilization, progressed pt with heel slides while maintaining core stabilization, verbal and tactile cues required, to faciliate TA contraction, cues to decrease range due to loss of TA contraction when going through full range. Physical Therapy Plan Frequency and Duration Frequency of Treatment 2x/Week Duration of treatment (weeks) 8 Plan of Care Start Date 10/29/23 Plan of Care End Date 12/29/23 Therapeutic Interventions Therapeutic Interventions Balance Training,Canalithic Repositioning,Gait Training, Home Exercise Program,Joint Mobilizations,Manual Therapy, Neuromuscular Re-education, Patient/Caregiver Education, Self-Care/Home Management,Soft Tissue Mobilization,Taping, Therapeutic Activities, Therapeutic Exercises Modalities Cold Pack/Ice Massage,Electric Stimulation,Hot Packs, Ultrasound Next Visit Focus/Plan Next Note Type Treatment Note Next Visit Plan Check how doing with goals. PT POC: Manual work consider gentle core progression starting in hook lying: bridge may NOT be a good one for pt Eventually, consider [place] and add hip extension and ankle DF and ER
--- NOTE | 2023-12-03 10:24 | PT-OP ANOTE ---
Addendum entered and electronically signed by Marion Arcos PTA 12/04/23 14:56: RPG PROGRAMMER ANALYST and PT initiate PN on 12/07 appt, as PT in facility. Original Note: PT has been following along in pt chart and checking treatments. Pt cancelled appointment with PT today d/t emergency. Pt is past due for progress note and PT was going to do today. Next two appointments are with RPG PROGRAMMER ANALYST. PT is not in office on Friday, at next scheduled appointment, and so left message on pt's voicemail that cancelling this appointment. RPG PROGRAMMER ANALYST can initiate progress note on treatment date on 12/04 as PT is in facility.
--- NOTE | 2023-12-08 14:32 | PT.OTN ---
Current Diagnoses Other chronic pain (12/08/23) Low back pain, unspecified (12/08/23) Physical Therapy Treatment Note PT-OP-A Visit Information Start: 10/28/23 07:26 Freq: Status: Active Protocol: Document 12/08/23 13:44 SP (Rec: 12/08/23 14:33 SP [id number]) Out-Patient Physical Therapy Visit Information Visit Information Visit Type Treatment Note Visit Note Medicare, for Life Update POC by 12/23, expires (STRAND GALVANIZER scheduled) Visit Start Time 13:45 Visit Stop Time 14:32 Visit Number 7 Number of STRAND GALVANIZER Visits 3 Evaluation Information Evaluation Date 10/29/23 Precautions Precautions Lami L2-14 July 2023 PT-OP-B Current Condition Start: 10/28/23 07:26 Freq: Status: Active Protocol: Document 10/29/23 08:19 MB (Rec: 10/29/23 08:56 MB [id number]) Current Condition History of Current Condition Onset Date Back surgery July 2023 Current Complaints Leg fatigue and left SI pain and anterior left thigh pain History of Current Condition Pt reports laminectomy L2,3,4 in [place] in July of this year. Pt reports progressive history of feet going numb and sciatic pain. 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 home as he will be here 6 months and then in [place] 6 months. [place] got [place] in [place]. He brings in exercises. He was getting better and then he began to reverse. A week and a half ago, a pipe burst in the house and he was pulling up pipe and he has no place to exercise. Pt saw pain specialist and they are talking about doing injections starting November 19. Generally, he sleeps pretty good. He does not use pillow support between legs. Prior Treatments and Tests Laminectomy, PT Treatment Goals Patient/Caregiver Goals Decrease the pain and to return to strengthening PT-OP-C Subjective Start: 10/28/23 07:26 Freq: Status: Active Protocol: Document 12/08/23 13:44 SP (Rec: 12/08/23 14:33 SP [id number]) OP-PT Subjective Patient Comments Patient Comments Pt reports missed last tx due to fall needed his help and have alot guests in town so not compliant with HEP. THe epidural (11/17) feeling better but today worse but doing more activity with family in town but not exercises this past week. He states walks little further /c [place] trek poles and sit rest ifif feeling up to it. Pain mgt stated if getting good results cound do a 2nd for added benefits. Still L lowback wrap around to L anterior thigh especially walking and uses trekpoles for support and allow him lower pain to go further distances. Pt asked if can join a rowing group. Patient Questionnaires Oswestry Low Back Index Oswestry Score 22/100 Oswestry Impairment 20 to 39% Impaired (Score 20- 39) PT-OP-G Mobility & Gait Start: 10/28/23 07:26 Freq: Status: Active Protocol: Document 10/29/23 08:19 MB (Rec: 10/29/23 08:56 MB [id number]) OP Gait Assessment Comments Gait Comments Gait assessment: pt does not always clear right foot and he presents with little arm swing and pelvic movement with gait as well as descreased step-length with gait PT-OP-J Posture/Palpation/Skin Start: 10/28/23 07:26 Freq: Status: Active Protocol: Document 10/29/23 08:19 MB (Rec: 10/29/23 08:56 MB [id number]) Posture Evaluation Comments Posture Comments Standing in barefoot: lower thoracic and upper lumbar hypertension, protrusion at paraspinal muscles and no real convexity right or left; right inferior scapula lower than the left; mild left convexity mid thoracic spine; left iliac crest mildly higher than the right; B flat feet and he reports arthritis in feet and more noticeable on the left, increased Sapphire angle , greater on the right. Very limited B SB, greater to the left and scar left side lumbar area; flexion with fingers almost one foot off the ground, normal posture with trunk mildly flexed over pelvis and active extension moves posture into neutral and pt reports increased left thigh pain PT-OP-K Range of Motion Start: 10/28/23 07:26 Freq: Status: Active Protocol: Document 10/29/23 08:19 MB (Rec: 10/29/23 08:56 MB [id number]) Hip Goniometric Range of Motion Hip ROM Limitations Comments SLR passive: right to 50 deg and left to 40 deg PT-OP-M Strength Start: 10/28/23 07:26 Freq: Status: Active Protocol: Document 10/29/23 08:19 MB (Rec: 10/29/23 08:56 MB [id number]) Hip Strength Hip Manual Muscle Testing Left Flexion (L2) 4- Good- Extension (S1) 4 Good Abduction 4 Good Adduction 4 Good Right Flexion (L2) 4+ Good+ Extension (S1) 4 Good Abduction 4+ Good+ Adduction 4+ Good+ Comments All MMT in supine Knee Strength Knee Manual Muscle Testing Left Flexion (S2) 5 Normal Extension (L3) 4+ Good+ Comments *with MMT knee, left great toe curls into flexion Right Flexion (S2) 5 Normal Extension (L3) 5 Normal Ankle/Foot Strength Ankle and Foot Manual Muscle Testing Left Dorsiflexion (L4) 5 Normal Right Dorsiflexion (L4) 5 Normal Toe Strength Toe Manual Muscle Testing Left Great Toe Extension 5 Normal Right Great Toe Extension 5 Normal Comments B plantar feet numbness PT-OP-Q Treatments Start: 10/28/23 07:26 Freq: Status: Active Protocol: Document 12/08/23 13:44 SP (Rec: 12/08/23 14:33 SP [id number]) Therapeutic Exercises Supine Exercises MWM hamstring and calf stretch Side bilateral Comments 30-40 pumps of calf of stretching leg Hip rotator stretch Side bilateral Reps/Minutes 1 rep, 45 sec-1 min Comments Ankle across opposite knee in hook lying and feels in hip Hook lying clam Supine Exercise Name single Side bilateral Resistance Level 3 band at thighs Reps/Minutes 10-30 reps at home, 3x/wk Comments Cues back toward table, TA draw in & glut ,slower pacing Pelvic realignment exercises Side bilateral Reps/Minutes 5 reps, 3 sec hold all exercises Comments Feet together ball squeeze, knee opp ankle iso, thigh press down Standing Exercises Heel raises Standing Exercise Name heel raises & toe raises Equipment Used PRN contact chair Reps/Minutes 30 reps each Comments cues for rocking, heel raise straight up STS Resistance Level 3 band around knees Reps/Minutes 30 reps (5-7x/wk at home) Comments from mesh chair Gait Training Gait Activity 6MWT Device Used 0 Level of Assistance close SBA Distance/Duration 1295 ft Comments R foot scuff 30% time, 4 instances of R foot tripping ( toe catch floor during LLE stance time- turns and strait away) during testing self recovery. He reports when using 2 better than 1 trek poles on walks and trails, doesn't really notice any tripping PT-OP-T Assessment and Plan Start: 10/28/23 07:26 Freq: Status: Active Protocol: Document 12/08/23 13:44 SP (Rec: 12/08/23 14:33 SP [id number]) Physical Therapy Assessment Goals 3 Impairment Need for HEP review and progression Pack Worker Goal (LTG) Pt will perform progressive HEP with I including pelvic realignment, flexibility, balance and core and LE strengthening exercises to improve pain and strength. 12/08/23: pelvis realignment, stretching HS with AP/ piriformis/Raz stretch/ resisted hooklying clamshell; resisted STS, stand: gastroc/ soleus stretch/HRTR LTG Duration 8 weeks 2 Impairment Evidence of imbalance and c/o fatigue with increased gait distance Pack Worker Goal (LTG) Pt will gait train at least 1300 feet in 6 minutes to improve community ambulation and functional leg strength when spine loaded. 12/08/23: progressin ft in 6 min. 30% R foot scuffing floor and 4 instances R toe caught floor tripping but self recovery, close SBA provide. LTG Duration 8 weeks 1 Impairment Oswestry reflects 24% impairment Pack Worker Goal (LTG) Pt will present with Oswestry to reflect no more than 15% impairment to improve quality of life and pain. 12/08/23: 11/50 or 22/100=22% impairement LTG Duration 8 weeks progression 12/08/23 Progress Towards Goals Progress Comments Progression reduction in Oswetry score by 2% and almost meets endurance 6MWT 1295 ft with no AD. Assessment Summary Assessment PT met with pt beginning of treatment with STRAND GALVANIZER and pt, discussed HEP and if continue old exercises. Pt report overall L low back and L anterior thigh better and was walking more using B trek poles. But regressed over past week due to busy helping from her medical issues and not giving his self care activity. Pt good tolerance to HEP review today with use of HOs. Reports less back tension end tx. Progressing toward gait distance 1295 ft in 6 min but had 4 instances of tripping RLE catching floor but self recovery contact wall recovery. He ususally uses B trek poles during community ambulation but didn't bring today. Also noted RLE scissor adduction positioning with conversation, educated mindful is a fall risk and focus on quality mobility and continue to utilize trekpoles for safety support at this time. He states has never LOB with trek poles. Pt would benefit from continued therapy to progress LE strength and functional mobiltiy to return to commmunity activity and trail walking, a personal goal . Pt in agreement wants to progress core strength and potentially join a rowing group. Physical Therapy Plan Frequency and Duration Frequency of Treatment 2x/Week Duration of treatment (weeks) 8 Plan of Care Start Date 10/29/23 Plan of Care End Date 12/29/23 Therapeutic Interventions Therapeutic Interventions Balance Training,Canalithic Repositioning,Gait Training, Home Exercise Program,Joint Mobilizations,Manual Therapy, Neuromuscular Re-education, Patient/Caregiver Education, Self-Care/Home Management,Soft Tissue Mobilization,Taping, Therapeutic Activities, Therapeutic Exercises Modalities Cold Pack/Ice Massage,Electric Stimulation,Hot Packs, Ultrasound Next Visit Focus/Plan Next Note Type Treatment Note Next Visit Plan Assess HEP as needed. PT POC: Manual work, progress/ consider [place] and add hip extension and ankle DF and ER when able.
--- NOTE | 2023-12-08 15:46 | PT.OPPN ---
Current Diagnoses Other chronic pain (12/08/23) Low back pain, unspecified (12/08/23) Physical Therapy Progress Note PT-OP-A Visit Information Start: 10/28/23 07:26 Freq: Status: Active Protocol: Document 12/08/23 15:43 MB (Rec: 12/08/23 15:46 MB [id number]) Out-Patient Physical Therapy Visit Information Visit Information Visit Type Progress Note Visit Note Medicare, Evaluation Information Evaluation Date 10/29/23 Precautions Precautions Lami L2-14 July 2023 PT-OP-B Current Condition Start: 10/28/23 07:26 Freq: Status: Active Protocol: Document 10/29/23 08:19 MB (Rec: 10/29/23 08:56 MB [id number]) Current Condition History of Current Condition Onset Date Back surgery July 2023 Current Complaints Leg fatigue and left SI pain and anterior left thigh pain History of Current Condition Pt reports laminectomy L2,3,4 in [place] in July of this year. Pt reports progressive history of feet going numb and sciatic pain. 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 Pt got PT in [place]. He brings in exercises. He was getting better and then he began to reverse. A week and a half ago, a pipe burst in the house and he was pulling up pipe and he has no place to exercise. Pt saw pain specialist and they are talking about doing injections starting November 19. Generally, he sleeps pretty good. He does not use pillow support between legs. Prior Treatments and Tests Laminectomy, PT Treatment Goals Patient/Caregiver Goals Decrease the pain and to return to strengthening PT-OP-C Subjective Start: 10/28/23 07:26 Freq: Status: Active Protocol: Document 12/08/23 13:44 SP (Rec: 12/08/23 14:33 SP [id number]) OP-PT Subjective Patient Comments Patient Comments Pt reports missed last tx due to fall needed his help and have alot guests in town so not compliant with HEP. THe epidural (11/17) feeling better but today worse but doing more activity with family in town but not exercises this past week. He states walks little further /c maldonado trek poles and sit rest ifif feeling up to it. Pain mgt stated if getting good results cound do a 2nd for added benefits. Still L lowback wrap around to L anterior thigh especially walking and uses trekpoles for support and allow him lower pain to go further distances. Pt asked if can join a rowing group. Patient Questionnaires Oswestry Low Back Index Oswestry Score 22/100 Oswestry Impairment 20 to 39% Impaired (Score 20- 39) PT-OP-G Mobility & Gait Start: 10/28/23 07:26 Freq: Status: Active Protocol: Document 10/29/23 08:19 MB (Rec: 10/29/23 08:56 MB [id number]) OP Gait Assessment Comments Gait Comments Gait assessment: pt does not always clear right foot and he presents with little arm swing and pelvic movement with gait as well as descreased step-length with gait PT-OP-J Posture/Palpation/Skin Start: 10/28/23 07:26 Freq: Status: Active Protocol: Document 10/29/23 08:19 MB (Rec: 10/29/23 08:56 MB [id number]) Posture Evaluation Comments Posture Comments Standing in barefoot: lower thoracic and upper lumbar hypertension, protrusion at paraspinal muscles and no real convexity right or left; right inferior scapula lower than the left; mild left convexity mid thoracic spine; left iliac crest mildly higher than the right; B flat feet and he reports arthritis in feet and more noticeable on the left, increased Sapphire angle , greater on the right. Very limited B SB, greater to the left and scar left side lumbar area; flexion with fingers almost one foot off the ground, normal posture with trunk mildly flexed over pelvis and active extension moves posture into neutral and pt reports increased left thigh pain PT-OP-K Range of Motion Start: 10/28/23 07:26 Freq: Status: Active Protocol: Document 10/29/23 08:19 MB (Rec: 10/29/23 08:56 MB [id number]) Hip Goniometric Range of Motion Hip ROM Limitations Comments SLR passive: right to 50 deg and left to 40 deg PT-OP-M Strength Start: 10/28/23 07:26 Freq: Status: Active Protocol: Document 10/29/23 08:19 MB (Rec: 10/29/23 08:56 MB [id number]) Hip Strength Hip Manual Muscle Testing Left Flexion (L2) 4- Good- Extension (S1) 4 Good Abduction 4 Good Adduction 4 Good Right Flexion (L2) 4+ Good+ Extension (S1) 4 Good Abduction 4+ Good+ Adduction 4+ Good+ Comments All MMT in supine Knee Strength Knee Manual Muscle Testing Left Flexion (S2) 5 Normal Extension (L3) 4+ Good+ Comments *with MMT knee, left great toe curls into flexion Right Flexion (S2) 5 Normal Extension (L3) 5 Normal Ankle/Foot Strength Ankle and Foot Manual Muscle Testing Left Dorsiflexion (L4) 5 Normal Right Dorsiflexion (L4) 5 Normal Toe Strength Toe Manual Muscle Testing Left Great Toe Extension 5 Normal Right Great Toe Extension 5 Normal Comments B plantar feet numbness PT-OP-T Assessment and Plan Start: 10/28/23 07:26 Freq: Status: Active Protocol: Document 12/08/23 15:43 MB (Rec: 12/08/23 15:46 MB [id number]) Physical Therapy Assessment Goals 3 Impairment Need for HEP review and progression Detention Goal (LTG) Pt will perform progressive HEP with I including pelvic realignment, flexibility, balance and core and LE strengthening exercises to improve pain and strength. 12/08/23: pelvis realignment, stretching HS with AP/ piriformis/Raz stretch/ resisted hooklying clamshell; resisted STS, stand: gastroc/ soleus stretch/HRTR LTG Duration 8 weeks 2 Impairment Evidence of imbalance and c/o fatigue with increased gait distance [employer] Goal (LTG) Pt will gait train at least 1300 feet in 6 minutes to improve community ambulation and functional leg strength when spine loaded. 12/08/23: progressin ft in 6 min. 30% R foot scuffing floor and 4 instances R toe caught floor tripping but self recovery, close SBA provide. LTG Duration 8 weeks 1 Impairment Oswestry reflects 24% impairment Detention Goal (LTG) Pt will present with Oswestry to reflect no more than 15% impairment to improve quality of life and pain. 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 Pt had a rough week after his was injured and they had guests at home and he has not been performing HEP. He is progressing slowly towards goals. Con't PT to improve pain, range, strength and gait . Physical Therapy Plan Frequency and Duration Frequency of Treatment 2x/Week Duration of treatment (weeks) 8 Plan of Care Start Date 12/08/23 Plan of Care End Date 01/10/24 Therapeutic Interventions Therapeutic Interventions Balance Training,Canalithic Repositioning,Gait Training, Home Exercise Program,Joint Mobilizations,Manual Therapy, Neuromuscular Re-education, Patient/Caregiver Education, Self-Care/Home Management,Soft Tissue Mobilization,Taping, Therapeutic Activities, Therapeutic Exercises Modalities Cold Pack/Ice Massage,Electric Stimulation,Hot Packs, Ultrasound Next Visit Focus/Plan Next Note Type Treatment Note Next Visit Plan Assess HEP as needed. PT POC: Manual work, progress/ consider [place] and add hip extension and ankle DF and ER when able.
--- NOTE | 2023-12-08 15:46 | PT.OPPOC ---
Physical, Occupational & Speech Therapy At [facility] Current Diagnoses Other chronic pain (12/08/23) Low back pain, unspecified (12/08/23) Visit Care Team Role Provider Type Kellen Villafuerte DO Attending Provider Physician Family Provider Primary Care Provider Referring Provider Specialty: Family Practice Address: [address] [place] [address], [address], [facility] Email: [email or web address] Plan Of Care PT-OP-B Current Condition Start: 10/28/23 07:26 Freq: Status: Active Protocol: Document 10/29/23 08:19 MB (Rec: 10/29/23 08:56 MB [id number]) Current Condition History of Current Condition Onset Date Back surgery July 2023 Current Complaints Leg fatigue and left SI pain and anterior left thigh pain History of Current Condition Pt reports laminectomy L2,3,4 in [place] in July of this year. Pt reports progressive history of feet going numb and sciatic pain. 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 Pt got PT in [place]. He brings in exercises. He was getting better and then he began to reverse. A week and a half ago, a pipe burst in the house and he was pulling up pipe and he has no place to exercise. Pt saw pain specialist and they are talking about doing injections starting November 19. Generally, he sleeps pretty good. He does not use pillow support between legs. Prior Treatments and Tests Laminectomy, PT Treatment Goals Patient/Caregiver Goals Decrease the pain and to return to strengthening PT-OP-T Assessment and Plan Start: 10/28/23 07:26 Freq: Status: Active Protocol: Document 12/08/23 15:43 MB (Rec: 12/08/23 15:46 MB [id number]) Physical Therapy Assessment Goals 3 Impairment Need for HEP review and progression Senior Living Goal (LTG) Pt will perform progressive HEP with I including pelvic realignment, flexibility, balance and core and LE strengthening exercises to improve pain and strength. 12/08/23: pelvis realignment, stretching HS with AP/ piriformis/Raz stretch/ resisted hooklying clamshell; resisted STS, stand: gastroc/ soleus stretch/HRTR LTG Duration 8 weeks 2 Impairment Evidence of imbalance and c/o fatigue with increased gait distance Senior Living Goal (LTG) Pt will gait train at least 1300 feet in 6 minutes to improve community ambulation and functional leg strength when spine loaded. 12/08/23: progressin ft in 6 min. 30% R foot scuffing floor and 4 instances R toe caught floor tripping but self recovery, close SBA provide. LTG Duration 8 weeks 1 Impairment Oswestry reflects 24% impairment Senior Living Goal (LTG) Pt will present with Oswestry to reflect no more than 15% impairment to improve quality of life and pain. 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 Pt had a rough week after his was injured and they had guests at home and he has not been performing HEP. He is progressing slowly towards goals. Con't PT to improve pain, range, strength and gait . Physical Therapy Plan Frequency and Duration Frequency of Treatment 2x/Week Duration of treatment (weeks) 8 Plan of Care Start Date 12/08/23 Plan of Care End Date 01/10/24 Therapeutic Interventions Therapeutic Interventions Balance Training,Canalithic Repositioning,Gait Training, Home Exercise Program,Joint Mobilizations,Manual Therapy, Neuromuscular Re-education, Patient/Caregiver Education, Self-Care/Home Management,Soft Tissue Mobilization,Taping, Therapeutic Activities, Therapeutic Exercises Modalities Cold Pack/Ice Massage,Electric Stimulation,Hot Packs, Ultrasound Next Visit Focus/Plan Next Note Type Treatment Note Next Visit Plan Assess HEP as needed. PT POC: Manual work, progress/ consider [place] and add hip extension and ankle DF and ER when able. Plan of Care Dates Plan of Care Start Date 12/08/23 Plan of Care End Date 01/10/24 Electronically Signed by: Meron Ríos, PT 12/08/23 3331 If you are in agreement with this Plan of Care, please return a signed and dated copy. I have reviewed this Plan of Care and certify that the skilled therapy services above are required to meet the patient?s needs. Physician Signature Date Printed Name and Credentials Clinical Instructor Signature Printed Name and Credentials
--- NOTE | 2023-12-10 10:33 | PT.OTN ---
Current Diagnoses Other chronic pain (12/10/23) Low back pain, unspecified (12/10/23) Physical Therapy Treatment Note PT-OP-A Visit Information Start: 10/28/23 07:26 Freq: Status: Active Protocol: Document 12/10/23 09:48 MB (Rec: 12/10/23 10:28 MB [id number]) Out-Patient Physical Therapy Visit Information Visit Information Visit Type Treatment Note Visit Note Medicare, Evaluation Information Evaluation Date 10/29/23 Precautions Precautions Lami L2-14 July 2023 PT-OP-B Current Condition Start: 10/28/23 07:26 Freq: Status: Active Protocol: Document 10/29/23 08:19 MB (Rec: 10/29/23 08:56 MB [id number]) Current Condition History of Current Condition Onset Date Back surgery July 2023 Current Complaints Leg fatigue and left SI pain and anterior left thigh pain History of Current Condition Pt reports laminectomy L2,3,4 in [place] in July of this year. Pt reports progressive history of feet going numb and sciatic pain. 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 as he will be here 6 months and then in [place] 6 months. Pt got PT in [place]. He brings in exercises. He was getting better and then he began to reverse. A week and a half ago, a pipe burst in the house and he was pulling up pipe and he has no place to exercise. Pt saw pain specialist and they are talking about doing injections starting November 19. Generally, he sleeps pretty good. He does not use pillow support between legs. Prior Treatments and Tests Laminectomy, PT Treatment Goals Patient/Caregiver Goals Decrease the pain and to return to strengthening PT-OP-C Subjective Start: 10/28/23 07:26 Freq: Status: Active Protocol: Document 12/10/23 09:48 MB (Rec: 12/10/23 10:28 MB [id number]) OP-PT Subjective Patient Comments Patient Comments Pt went swimming in the pool several weeks ago and he went in [facility] with his dog. He is feeling a little better. He did his exercises and his visitors left. PT-OP-G Mobility & Gait Start: 10/28/23 07:26 Freq: Status: Active Protocol: Document 10/29/23 08:19 MB (Rec: 10/29/23 08:56 MB [id number]) OP Gait Assessment Comments Gait Comments Gait assessment: pt does not always clear right foot and he presents with little arm swing and pelvic movement with gait as well as descreased step-length with gait PT-OP-J Posture/Palpation/Skin Start: 10/28/23 07:26 Freq: Status: Active Protocol: Document 10/29/23 08:19 MB (Rec: 10/29/23 08:56 MB [id number]) Posture Evaluation Comments Posture Comments Standing in barefoot: lower thoracic and upper lumbar hypertension, protrusion at paraspinal muscles and no real convexity right or left; right inferior scapula lower than the left; mild left convexity mid thoracic spine; left iliac crest mildly higher than the right; B flat feet and he reports arthritis in feet and more noticeable on the left, increased Sapphire angle , greater on the right. Very limited B SB, greater to the left and scar left side lumbar area; flexion with fingers almost one foot off the ground, normal posture with trunk mildly flexed over pelvis and active extension moves posture into neutral and pt reports increased left thigh pain PT-OP-K Range of Motion Start: 10/28/23 07:26 Freq: Status: Active Protocol: Document 10/29/23 08:19 MB (Rec: 10/29/23 08:56 MB [id number]) Hip Goniometric Range of Motion Hip ROM Limitations Comments SLR passive: right to 50 deg and left to 40 deg PT-OP-M Strength Start: 10/28/23 07:26 Freq: Status: Active Protocol: Document 10/29/23 08:19 MB (Rec: 10/29/23 08:56 MB [id number]) Hip Strength Hip Manual Muscle Testing Left Flexion (L2) 4- Good- Extension (S1) 4 Good Abduction 4 Good Adduction 4 Good Right Flexion (L2) 4+ Good+ Extension (S1) 4 Good Abduction 4+ Good+ Adduction 4+ Good+ Comments All MMT in supine Knee Strength Knee Manual Muscle Testing Left Flexion (S2) 5 Normal Extension (L3) 4+ Good+ Comments *with MMT knee, left great toe curls into flexion Right Flexion (S2) 5 Normal Extension (L3) 5 Normal Ankle/Foot Strength Ankle and Foot Manual Muscle Testing Left Dorsiflexion (L4) 5 Normal Right Dorsiflexion (L4) 5 Normal Toe Strength Toe Manual Muscle Testing Left Great Toe Extension 5 Normal Right Great Toe Extension 5 Normal Comments B plantar feet numbness PT-OP-Q Treatments Start: 10/28/23 07:26 Freq: Status: Active Protocol: Document 12/10/23 09:48 MB (Rec: 12/10/23 10:28 MB [id number]) Therapeutic Exercises Supine Exercises Core Supine Exercise Name 1. Pelvic tilt and abdom drawing in first Side bilateral Reps/Minutes Many reps Comments HS, Gentle knee rocking, mini march, knee fall out Raz stretch Side bilateral Comments Reviewed today, double pillow under head Manual Therapy Treatment Consent Patient gave verbal consent for manual Yes treatment Other Other Manual Treatments Supine with head and legs supported: STM and positional release B PFs, vastus lateralis, hip rotators, QL and paraspinals with increased tension on the left at back musculature, B iliopsoas with increased tension PT-OP-T Assessment and Plan Start: 10/28/23 07:26 Freq: Status: Active Protocol: Document 12/10/23 09:48 MB (Rec: 12/10/23 10:28 MB [id number]) Physical Therapy Assessment Goals 3 Impairment Need for HEP review and progression Correction Goal (LTG) Pt will perform progressive HEP with I including pelvic realignment, flexibility, balance and core and LE strengthening exercises to improve pain and strength. 12/08/23: pelvis realignment, stretching HS with AP/ piriformis/Raz stretch/ resisted hooklying clamshell; resisted STS, stand: gastroc/ soleus stretch/HRTR LTG Duration 8 weeks 2 Impairment Evidence of imbalance and c/o fatigue with increased gait distance Correction Goal (LTG) Pt will gait train at least 1300 feet in 6 minutes to improve community ambulation and functional leg strength when spine loaded. 12/08/23: progressin ft in 6 min. 30% R foot scuffing floor and 4 instances R toe caught floor tripping but self recovery, close SBA provide. LTG Duration 8 weeks 1 Impairment Oswestry reflects 24% impairment Supervisor Shuttle Preparation Goal (LTG) Pt will present with Oswestry to reflect no more than 15% impairment to improve quality of life and pain. 12/08/23: 11/50 or 22/100=22% impairement LTG Duration 8 weeks progression 12/08/23 Assessment Summary Assessment Reviewed gentle core strengthening and progressed today. Increased time and cues and so a lot of time spent on this today. Physical Therapy Plan Frequency and Duration Frequency of Treatment 2x/Week Duration of treatment (weeks) 8 Plan of Care Start Date 12/08/23 Plan of Care End Date 01/10/24 Therapeutic Interventions Therapeutic Interventions Balance Training,Canalithic Repositioning,Gait Training, Home Exercise Program,Joint Mobilizations,Manual Therapy, Neuromuscular Re-education, Patient/Caregiver Education, Self-Care/Home Management,Soft Tissue Mobilization,Taping, Therapeutic Activities, Therapeutic Exercises Modalities Cold Pack/Ice Massage,Electric Stimulation,Hot Packs, Ultrasound Next Visit Focus/Plan Next Note Type Treatment Note Next Visit Plan Manual work, review gentle core progression, progress/ consider [place] and add hip extension and ankle DF and ER when able.
--- NOTE | 2023-12-15 10:32 | PT.OTN ---
Current Diagnoses Other chronic pain (12/15/23) Low back pain, unspecified (12/15/23) Physical Therapy Treatment Note PT-OP-A Visit Information Start: 10/28/23 07:26 Freq: Status: Active Protocol: Document 12/15/23 09:46 SP (Rec: 12/15/23 10:35 SP [id number]) Out-Patient Physical Therapy Visit Information Visit Information Visit Type Treatment Note Visit Note Medicare, 2/10 after PN Visit Start Time 09:46 Visit Stop Time 10:32 Visit Number 9 Number of LICENSED ELECTRICIAN Visits 1 Evaluation Information Evaluation Date 10/29/23 Precautions Precautions Lami L2-14 July 2023 PT-OP-B Current Condition Start: 10/28/23 07:26 Freq: Status: Active Protocol: Document 10/29/23 08:19 MB (Rec: 10/29/23 08:56 MB [id number]) Current Condition History of Current Condition Onset Date Back surgery July 2023 Current Complaints Leg fatigue and left SI pain and anterior left thigh pain History of Current Condition Pt reports laminectomy L2,3,4 in [place] in July of this year. Pt reports progressive history of feet going numb and sciatic pain. 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 Pt got PT in [place]. He brings in exercises. He was getting better and then he began to reverse. A week and a half ago, a pipe burst in the house and he was pulling up pipe and he has no place to exercise. Pt saw pain specialist and they are talking about doing injections starting November 19. Generally, he sleeps pretty good. He does not use pillow support between legs. Prior Treatments and Tests Laminectomy, PT Treatment Goals Patient/Caregiver Goals Decrease the pain and to return to strengthening PT-OP-C Subjective Start: 10/28/23 07:26 Freq: Status: Active Protocol: Document 12/15/23 09:46 SP (Rec: 12/15/23 10:35 SP [id number]) OP-PT Subjective Patient Comments Patient Comments Pt reports thinks the new core exercises helping and is walking more with on adverse affects. PT-OP-G Mobility & Gait Start: 10/28/23 07:26 Freq: Status: Active Protocol: Document 10/29/23 08:19 MB (Rec: 10/29/23 08:56 MB [id number]) OP Gait Assessment Comments Gait Comments Gait assessment: pt does not always clear right foot and he presents with little arm swing and pelvic movement with gait as well as descreased step-length with gait PT-OP-J Posture/Palpation/Skin Start: 10/28/23 07:26 Freq: Status: Active Protocol: Document 10/29/23 08:19 MB (Rec: 10/29/23 08:56 MB [id number]) Posture Evaluation Comments Posture Comments Standing in barefoot: lower thoracic and upper lumbar hypertension, protrusion at paraspinal muscles and no real convexity right or left; right inferior scapula lower than the left; mild left convexity mid thoracic spine; left iliac crest mildly higher than the right; B flat feet and he reports arthritis in feet and more noticeable on the left, increased Sapphire angle , greater on the right. Very limited B SB, greater to the left and scar left side lumbar area; flexion with fingers almost one foot off the ground, normal posture with trunk mildly flexed over pelvis and active extension moves posture into neutral and pt reports increased left thigh pain PT-OP-K Range of Motion Start: 10/28/23 07:26 Freq: Status: Active Protocol: Document 10/29/23 08:19 MB (Rec: 10/29/23 08:56 MB [id number]) Hip Goniometric Range of Motion Hip ROM Limitations Comments SLR passive: right to 50 deg and left to 40 deg PT-OP-M Strength Start: 10/28/23 07:26 Freq: Status: Active Protocol: Document 10/29/23 08:19 MB (Rec: 10/29/23 08:56 MB [id number]) Hip Strength Hip Manual Muscle Testing Left Flexion (L2) 4- Good- Extension (S1) 4 Good Abduction 4 Good Adduction 4 Good Right Flexion (L2) 4+ Good+ Extension (S1) 4 Good Abduction 4+ Good+ Adduction 4+ Good+ Comments All MMT in supine Knee Strength Knee Manual Muscle Testing Left Flexion (S2) 5 Normal Extension (L3) 4+ Good+ Comments *with MMT knee, left great toe curls into flexion Right Flexion (S2) 5 Normal Extension (L3) 5 Normal Ankle/Foot Strength Ankle and Foot Manual Muscle Testing Left Dorsiflexion (L4) 5 Normal Right Dorsiflexion (L4) 5 Normal Toe Strength Toe Manual Muscle Testing Left Great Toe Extension 5 Normal Right Great Toe Extension 5 Normal Comments B plantar feet numbness PT-OP-Q Treatments Start: 10/28/23 07:26 Freq: Status: Active Protocol: Document 12/15/23 09:46 SP (Rec: 12/15/23 10:35 SP [id number]) Therapeutic Exercises Supine Exercises Core Supine Exercise Name 1. Pelvic tilt and abdom drawing in first Side bilateral Reps/Minutes 15 reps each Comments HS, Gentle knee rocking, mini march, knee fall out Sitting Exercises [place] LAQ Sitting Exercise Name Initiated in PT- added to HEP Side bilateral Resistance AROM Reps/Minutes 2x10 alternate Comments L thigh tiring, R leg not want straighten out- better ROM with reps [place] sit stand Sitting Exercise Name reviewed HEP Resistance AROM Equipment Used mesh chair- arms across chest Reps/Minutes x10 in PT (25 home) Comments no adverse affects- has been doing on own home Standing Exercises [place] Heel raises Standing Exercise Name added to HEP Side bilateral Resistance AROM Reps/Minutes x10 Comments felt fine [place] hip abd Standing Exercise Name In PT only- due to discomfort in PT Side bilateral Resistance AROM Equipment Used rail support Reps/Minutes x10 Comments R LB into anterior thigh 08/19 PT-OP-T Assessment and Plan Start: 10/28/23 07:26 Freq: Status: Active Protocol: Document 12/15/23 09:46 SP (Rec: 12/15/23 10:35 SP [id number]) Physical Therapy Assessment Goals 3 Impairment Need for HEP review and progression Research And Development Scientist Goal (LTG) Pt will perform progressive HEP with I including pelvic realignment, flexibility, balance and core and LE strengthening exercises to improve pain and strength. 12/08/23: pelvis realignment, stretching HS with AP/ piriformis/Raz stretch/ resisted hooklying clamshell; resisted STS, stand: gastroc/ soleus stretch/HRTR LTG Duration 8 weeks 2 Impairment Evidence of imbalance and c/o fatigue with increased gait distance [facility] Goal (LTG) Pt will gait train at least 1300 feet in 6 minutes to improve community ambulation and functional leg strength when spine loaded. 12/08/23: progressin ft in 6 min. 30% R foot scuffing floor and 4 instances R toe caught floor tripping but self recovery, close SBA provide. LTG Duration 8 weeks 1 Impairment Oswestry reflects 24% impairment [facility] Goal (LTG) Pt will present with Oswestry to reflect no more than 15% impairment to improve quality of life and pain. 12/08/23: 1150 or 22/100=22% impairement LTG Duration 8 weeks progression 12/08/23 Assessment Summary Assessment Pt responded well with improved TA engagement with occasional cuing draw in 30% ( not 100%), breath allowance and slower pacing LE mobility during newly added exercises last tx. Pt tolerated trial and addition of seated and 2 standing [place] exercises AROM with cues for elongated posture and TA engagment painfree. Did have some R LBP during standing hip abd so instructed to hold this for now will revisit next time. Pt stated felt less tension LB end tx. Physical Therapy Plan Frequency and Duration Frequency of Treatment 2x/Week Duration of treatment (weeks) 8 Plan of Care Start Date 12/08/23 Plan of Care End Date 01/10/24 Therapeutic Interventions Therapeutic Interventions Balance Training,Canalithic Repositioning,Gait Training, Home Exercise Program,Joint Mobilizations,Manual Therapy, Neuromuscular Re-education, Patient/Caregiver Education, Self-Care/Home Management,Soft Tissue Mobilization,Taping, Therapeutic Activities, Therapeutic Exercises Modalities Cold Pack/Ice Massage,Electric Stimulation,Hot Packs, Ultrasound Next Visit Focus/Plan Next Note Type Treatment Note Next Visit Plan Check TA engagement during core supine and response to initiated [place] seated and heel raises. PT POC: Manual work, review gentle core progression, progress/ consider [place] and add hip extension and ankle DF and ER when able.
--- NOTE | 2023-12-17 10:31 | PT.OTN ---
Current Diagnoses Other chronic pain (12/17/23) Low back pain, unspecified (12/17/23) Physical Therapy Treatment Note PT-OP-A Visit Information Start: 10/28/23 07:26 Freq: Status: Active Protocol: Document 12/17/23 09:48 MB (Rec: 12/17/23 10:28 MB [id number]) Out-Patient Physical Therapy Visit Information Visit Information Visit Type Treatment Note Visit Note Medicare, Progress note by 01/07 Visit Start Time 09:48 Visit Stop Time 10:28 Visit Number 10 Number of BUILDING ENERGY CONSULTANT Visits 0 Evaluation Information Evaluation Date 10/29/23 Precautions Precautions Lami L2-14 July 2023 PT-OP-B Current Condition Start: 10/28/23 07:26 Freq: Status: Active Protocol: Document 10/29/23 08:19 MB (Rec: 10/29/23 08:56 MB [id number]) Current Condition History of Current Condition Onset Date Back surgery July 2023 Current Complaints Leg fatigue and left SI pain and anterior left thigh pain History of Current Condition Pt reports laminectomy L2,3,4 in [place] in July of this year. Pt reports progressive history of feet going numb and sciatic pain. 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 Pt got PT in [place]. He brings in exercises. He was getting better and then he began to reverse. A week and a half ago, a pipe burst in the house and he was pulling up pipe and he has no place to exercise. Pt saw pain specialist and they are talking about doing injections starting November 19. Generally, he sleeps pretty good. He does not use pillow support between legs. Prior Treatments and Tests Laminectomy, PT Treatment Goals Patient/Caregiver Goals Decrease the pain and to return to strengthening PT-OP-C Subjective Start: 10/28/23 07:26 Freq: Status: Active Protocol: Document 12/17/23 09:48 MB (Rec: 12/17/23 10:28 MB [id number]) OP-PT Subjective Patient Comments Patient Comments Pt took a late night walk with dog last night and he felt he turned a corner with pain. He walked a couple of miles and took one walking stick. Pt reports ice chip feeling under the skin on left thigh around L2 area. PT-OP-G Mobility & Gait Start: 10/28/23 07:26 Freq: Status: Active Protocol: Document 10/29/23 08:19 MB (Rec: 10/29/23 08:56 MB [id number]) OP Gait Assessment Comments Gait Comments Gait assessment: pt does not always clear right foot and he presents with little arm swing and pelvic movement with gait as well as descreased step-length with gait PT-OP-J Posture/Palpation/Skin Start: 10/28/23 07:26 Freq: Status: Active Protocol: Document 10/29/23 08:19 MB (Rec: 10/29/23 08:56 MB [id number]) Posture Evaluation Comments Posture Comments Standing in barefoot: lower thoracic and upper lumbar hypertension, protrusion at paraspinal muscles and no real convexity right or left; right inferior scapula lower than the left; mild left convexity mid thoracic spine; left iliac crest mildly higher than the right; B flat feet and he reports arthritis in feet and more noticeable on the left, increased Sapphire angle , greater on the right. Very limited B SB, greater to the left and scar left side lumbar area; flexion with fingers almost one foot off the ground, normal posture with trunk mildly flexed over pelvis and active extension moves posture into neutral and pt reports increased left thigh pain PT-OP-K Range of Motion Start: 10/28/23 07:26 Freq: Status: Active Protocol: Document 10/29/23 08:19 MB (Rec: 10/29/23 08:56 MB [id number]) Hip Goniometric Range of Motion Hip ROM Limitations Comments SLR passive: right to 50 deg and left to 40 deg PT-OP-M Strength Start: 10/28/23 07:26 Freq: Status: Active Protocol: Document 10/29/23 08:19 MB (Rec: 10/29/23 08:56 MB [id number]) Hip Strength Hip Manual Muscle Testing Left Flexion (L2) 4- Good- Extension (S1) 4 Good Abduction 4 Good Adduction 4 Good Right Flexion (L2) 4+ Good+ Extension (S1) 4 Good Abduction 4+ Good+ Adduction 4+ Good+ Comments All MMT in supine Knee Strength Knee Manual Muscle Testing Left Flexion (S2) 5 Normal Extension (L3) 4+ Good+ Comments *with MMT knee, left great toe curls into flexion Right Flexion (S2) 5 Normal Extension (L3) 5 Normal Ankle/Foot Strength Ankle and Foot Manual Muscle Testing Left Dorsiflexion (L4) 5 Normal Right Dorsiflexion (L4) 5 Normal Toe Strength Toe Manual Muscle Testing Left Great Toe Extension 5 Normal Right Great Toe Extension 5 Normal Comments B plantar feet numbness PT-OP-Q Treatments Start: 10/28/23 07:26 Freq: Status: Active Protocol: Document 12/17/23 09:48 MB (Rec: 12/17/23 10:28 MB [id number]) Therapeutic Exercises Supine Exercises Core Supine Exercise Name Pelvic tilt and abdominal drawing in today in hook lying Side bilateral Reps/Minutes Many reps each Comments HS, Gentle knee rocking, mini march, knee fall out Sitting Exercises Therapy ball sitting Sitting Exercise Name Ed pt on belly button tight and pelvic floor, posture Equipment Used 65 cm and 75 cm ball Comments 65 cm ball is more firm and pt likes it, could be taller Manual Therapy Treatment Consent Patient gave verbal consent for manual Yes treatment Other Other Manual Treatments B gentle manual stretch gently for QL and hip flexor and QL and TrP treatment left QL and hip flexor and right QL and pt reports symptoms are different PT-OP-T Assessment and Plan Start: 10/28/23 07:26 Freq: Status: Active Protocol: Document 12/17/23 09:48 MB (Rec: 12/17/23 10:28 MB [id number]) Physical Therapy Assessment Goals 3 Impairment Need for HEP review and progression Automatic Driller And Reamer Goal (LTG) Pt will perform progressive HEP with I including pelvic realignment, flexibility, balance and core and LE strengthening exercises to improve pain and strength. 12/08/23: pelvis realignment, stretching HS with AP/ piriformis/Raz stretch/ resisted hooklying clamshell; resisted STS, stand: gastroc/ soleus stretch/HRTR LTG Duration 8 weeks 2 Impairment Evidence of imbalance and c/o fatigue with increased gait distance Detention Goal (LTG) Pt will gait train at least 1300 feet in 6 minutes to improve community ambulation and functional leg strength when spine loaded. 12/08/23: progressin ft in 6 min. 30% R foot scuffing floor and 4 instances R toe caught floor tripping but self recovery, close SBA provide. LTG Duration 8 weeks 1 Impairment Oswestry reflects 24% impairment Detention Goal (LTG) Pt will present with Oswestry to reflect no more than 15% impairment to improve quality of life and pain. 12/08/23: 50 or =22% impairement LTG Duration 8 weeks progression 12/08/23 Assessment Summary Assessment Pt cannot tell if manual work was helpful or not yet today. Pt tends to under-report symptoms/has high pain tolerance. His lumbar spine and sacrum is tight and he might benefit from further ed on on relaxation about this. Physical Therapy Plan Frequency and Duration Frequency of Treatment 2x/Week Duration of treatment (weeks) 8 Plan of Care Start Date 12/08/23 Plan of Care End Date 01/10/24 Therapeutic Interventions Therapeutic Interventions Balance Training,Canalithic Repositioning,Gait Training, Home Exercise Program,Joint Mobilizations,Manual Therapy, Neuromuscular Re-education, Patient/Caregiver Education, Self-Care/Home Management,Soft Tissue Mobilization,Taping, Therapeutic Activities, Therapeutic Exercises Modalities Cold Pack/Ice Massage,Electric Stimulation,Hot Packs, Ultrasound Next Visit Focus/Plan Next Note Type Treatment Note Next Visit Plan Manual work, review and progress Otago and add hip extension, ankle DF and eversion with band in sitting
--- NOTE | 2023-12-22 10:30 | PT.OTN ---
Current Diagnoses Other chronic pain (12/22/23) Low back pain, unspecified (12/22/23) Physical Therapy Treatment Note PT-OP-A Visit Information Start: 10/28/23 07:26 Freq: Status: Active Protocol: Document 12/22/23 09:50 SP (Rec: 12/22/23 10:33 SP [id number]) Out-Patient Physical Therapy Visit Information Visit Information Visit Type Treatment Note Visit Note Medicare, /10 post PN Progress note by 01/07 Visit Start Time 09:50 Visit Stop Time 10:30 Visit Number 11 Number of INFECTION PREVENTION SPECIALIST Visits 1 Evaluation Information Evaluation Date 10/29/23 Precautions Precautions Lami L2-14 July 2023 PT-OP-B Current Condition Start: 10/28/23 07:26 Freq: Status: Active Protocol: Document 10/29/23 08:19 MB (Rec: 10/29/23 08:56 MB [id number]) Current Condition History of Current Condition Onset Date Back surgery July 2023 Current Complaints Leg fatigue and left SI pain and anterior left thigh pain History of Current Condition Pt reports laminectomy L2,3,4 in [place] in July of this year. Pt reports progressive history of feet going numb and sciatic pain. 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 as he will be here 6 months and then in [place] 6 months. Pt got PT in [place]. He brings in exercises. He was getting better and then he began to reverse. A week and a half ago, a pipe burst in the house and he was pulling up pipe and he has no place to exercise. Pt saw pain specialist and they are talking about doing injections starting November 19. Generally, he sleeps pretty good. He does not use pillow support between legs. Prior Treatments and Tests Laminectomy, PT Treatment Goals Patient/Caregiver Goals Decrease the pain and to return to strengthening PT-OP-C Subjective Start: 10/28/23 07:26 Freq: Status: Active Protocol: Document 12/22/23 09:50 SP (Rec: 12/22/23 10:33 SP [id number]) OP-PT Subjective Patient Comments Patient Comments Pt reports no having pain per say just itchy but feels like cold water droplets within his anterior L leg, not superficial. He said walking 1 .5-2 miles without sticks in not faced pace stroll has better stamina. He was able to dance last night about 1.5-2 hrs and L anterior thigh I felt it but just needed sit down for some relief but for it to go away needs sit for 2 hrs. PT-OP-G Mobility & Gait Start: 10/28/23 07:26 Freq: Status: Active Protocol: Document 10/29/23 08:19 MB (Rec: 10/29/23 08:56 MB [id number]) OP Gait Assessment Comments Gait Comments Gait assessment: pt does not always clear right foot and he presents with little arm swing and pelvic movement with gait as well as descreased step-length with gait PT-OP-J Posture/Palpation/Skin Start: 10/28/23 07:26 Freq: Status: Active Protocol: Document 10/29/23 08:19 MB (Rec: 10/29/23 08:56 MB [id number]) Posture Evaluation Comments Posture Comments Standing in barefoot: lower thoracic and upper lumbar hypertension, protrusion at paraspinal muscles and no real convexity right or left; right inferior scapula lower than the left; mild left convexity mid thoracic spine; left iliac crest mildly higher than the right; B flat feet and he reports arthritis in feet and more noticeable on the left, increased Sapphire angle , greater on the right. Very limited B SB, greater to the left and scar left side lumbar area; flexion with fingers almost one foot off the ground, normal posture with trunk mildly flexed over pelvis and active extension moves posture into neutral and pt reports increased left thigh pain PT-OP-K Range of Motion Start: 10/28/23 07:26 Freq: Status: Active Protocol: Document 10/29/23 08:19 MB (Rec: 10/29/23 08:56 MB [id number]) Hip Goniometric Range of Motion Hip ROM Limitations Comments SLR passive: right to 50 deg and left to 40 deg PT-OP-M Strength Start: 10/28/23 07:26 Freq: Status: Active Protocol: Document 10/29/23 08:19 MB (Rec: 10/29/23 08:56 MB [id number]) Hip Strength Hip Manual Muscle Testing Left Flexion (L2) 4- Good- Extension (S1) 4 Good Abduction 4 Good Adduction 4 Good Right Flexion (L2) 4+ Good+ Extension (S1) 4 Good Abduction 4+ Good+ Adduction 4+ Good+ Comments All MMT in supine Knee Strength Knee Manual Muscle Testing Left Flexion (S2) 5 Normal Extension (L3) 4+ Good+ Comments *with MMT knee, left great toe curls into flexion Right Flexion (S2) 5 Normal Extension (L3) 5 Normal Ankle/Foot Strength Ankle and Foot Manual Muscle Testing Left Dorsiflexion (L4) 5 Normal Right Dorsiflexion (L4) 5 Normal Toe Strength Toe Manual Muscle Testing Left Great Toe Extension 5 Normal Right Great Toe Extension 5 Normal Comments B plantar feet numbness PT-OP-Q Treatments Start: 10/28/23 07:26 Freq: Status: Active Protocol: Document 12/22/23 09:50 SP (Rec: 12/22/23 10:33 SP [id number]) Therapeutic Exercises Prone Exercises quad stretch Prone Exercise Name trialed in PT for support improve LB mobility- good response Side left Equipment Used use strap on foot, pillow under pelvis Reps/Minutes 1 reps 20-60 SH Comments manual then ed/use strap- VC slow range gentle stretch, TA Sitting Exercises Otago LAQ Sitting Exercise Name reviewed HEP Side bilateral Resistance AROM Reps/Minutes 2x10 alternate Comments reports just muscle tired [place] sit stand Sitting Exercise Name reviewed HEP Resistance AROM Equipment Used mesh chair- arms across chest Reps/Minutes x10 in PT (25 home) Comments no adverse affects- has been doing on own home Standing Exercises Hip Ext Standing Exercise Name initiated in PT Side bilateral Equipment Used rail support Reps/Minutes x10 Comments improved TA and elongated posture- challenged inhibit LB recruitment [place] Hamstring curls Standing Exercise Name initiated for HEP Side bilateral Resistance AROM Equipment Used rail support Reps/Minutes 10 Comments alternating- VC thighs parallel each other [place] Heel raises Standing Exercise Name reviewed HEP Side bilateral Resistance AROM Reps/Minutes x10 Comments felt fine- no need UE support [place] hip abd Standing Exercise Name reviewed Side bilateral Resistance AROM Equipment Used rail support Reps/Minutes x10 Comments R LB into anterior thigh 4/10 Manual Therapy Treatment Consent Patient gave verbal consent for manual Yes treatment Other Other Manual Treatments R>L QL prone over pillows Manual STMs, R SL manual and rolling pin VL and ITB /c ed self use home. PT-OP-T Assessment and Plan Start: 10/28/23 07:26 Freq: Status: Active Protocol: Document 12/22/23 09:50 SP (Rec: 12/22/23 10:33 SP [id number]) Physical Therapy Assessment Goals 3 Impairment Need for HEP review and progression Fruit Rancher Goal (LTG) Pt will perform progressive HEP with I including pelvic realignment, flexibility, balance and core and LE strengthening exercises to improve pain and strength. 12/08/23: pelvis realignment, stretching HS with AP/ piriformis/Raz stretch/ resisted hooklying clamshell; resisted STS, stand: gastroc/ soleus stretch/HRTR LTG Duration 8 weeks 2 Impairment Evidence of imbalance and c/o fatigue with increased gait distance Half-Way Goal (LTG) Pt will gait train at least 1300 feet in 6 minutes to improve community ambulation and functional leg strength when spine loaded. 12/08/23: progressin ft in 6 min. 30% R foot scuffing floor and 4 instances R toe caught floor tripping but self recovery, close SBA provide. LTG Duration 8 weeks 1 Impairment Oswestry reflects 24% impairment Fruit Rancher Goal (LTG) Pt will present with Oswestry to reflect no more than 15% impairment to improve quality of life and pain. 12/08/23: 11/50 or 22/100=22% impairement LTG Duration 8 weeks progression 12/08/23 Assessment Summary Assessment Pt reports improved less tension on LB post manual, cues for TA fac inhibit LB fac during prone quad stretch and hip extension standing trialed today. He had good response to review Otago ex, provided requested bigger font [place] ex paperwork (double sided easier to read). Cues for TA facilitation and slower pacing during hip ext improved diminished LB recruitment. Physical Therapy Plan Frequency and Duration Frequency of Treatment 2x/Week Duration of treatment (weeks) 8 Plan of Care Start Date 12/08/23 Plan of Care End Date 01/10/24 Therapeutic Interventions Therapeutic Interventions Balance Training,Canalithic Repositioning,Gait Training, Home Exercise Program,Joint Mobilizations,Manual Therapy, Neuromuscular Re-education, Patient/Caregiver Education, Self-Care/Home Management,Soft Tissue Mobilization,Taping, Therapeutic Activities, Therapeutic Exercises Modalities Cold Pack/Ice Massage,Electric Stimulation,Hot Packs, Ultrasound Next Visit Focus/Plan Next Note Type Treatment Note Next Visit Plan Manual work, review core HEP as needed, Assess response to progressed [place] and hip extension standing and addition of seated ankle DF and eversion with band in sitting. Continue progress per PT POC.
--- NOTE | 2023-12-24 10:34 | PT.OTN ---
Current Diagnoses Other chronic pain (12/24/23) Low back pain, unspecified (12/24/23) Physical Therapy Treatment Note PT-OP-A Visit Information Start: 10/28/23 07:26 Freq: Status: Active Protocol: Document 12/24/23 09:50 MB (Rec: 12/24/23 10:27 MB [id number]) Out-Patient Physical Therapy Visit Information Visit Information Visit Type Treatment Note Visit Note Medicare, Progress note by 01/07 Visit Start Time 09:50 Visit Stop Time 10:30 Visit Number 12 Number of FORM SETTER SUPERVISOR Visits 0 Evaluation Information Evaluation Date 10/29/23 Precautions Precautions Lami L2-14 July 2023 PT-OP-B Current Condition Start: 10/28/23 07:26 Freq: Status: Active Protocol: Document 10/29/23 08:19 MB (Rec: 10/29/23 08:56 MB [id number]) Current Condition History of Current Condition Onset Date Back surgery July 2023 Current Complaints Leg fatigue and left SI pain and anterior left thigh pain History of Current Condition Pt reports laminectomy L2,3,4 in [place] in July of this year. Pt reports progressive history of feet going numb and sciatic pain. 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 Pt got PT in [place]. He brings in exercises. He was getting better and then he began to reverse. A week and a half ago, a pipe burst in the house and he was pulling up pipe and he has no place to exercise. Pt saw pain specialist and they are talking about doing injections starting November 19. Generally, he sleeps pretty good. He does not use pillow support between legs. Prior Treatments and Tests Laminectomy, PT Treatment Goals Patient/Caregiver Goals Decrease the pain and to return to strengthening PT-OP-C Subjective Start: 10/28/23 07:26 Freq: Status: Active Protocol: Document 12/24/23 09:50 MB (Rec: 12/24/23 10:27 MB [id number]) OP-PT Subjective Patient Comments Patient Comments Pt states that he had a rough night sleeping last night. Coffee puts him to sleep and he is concerned about driving down to [place]. They go back down in 2 months as they are snow birds. Pt is going to get another shot in his back next week. Pt is walking way further and he is doing it without hiking sticks. PT-OP-G Mobility & Gait Start: 10/28/23 07:26 Freq: Status: Active Protocol: Document 10/29/23 08:19 MB (Rec: 10/29/23 08:56 MB [id number]) OP Gait Assessment Comments Gait Comments Gait assessment: pt does not always clear right foot and he presents with little arm swing and pelvic movement with gait as well as descreased step-length with gait PT-OP-J Posture/Palpation/Skin Start: 10/28/23 07:26 Freq: Status: Active Protocol: Document 10/29/23 08:19 MB (Rec: 10/29/23 08:56 MB [id number]) Posture Evaluation Comments Posture Comments Standing in barefoot: lower thoracic and upper lumbar hypertension, protrusion at paraspinal muscles and no real convexity right or left; right inferior scapula lower than the left; mild left convexity mid thoracic spine; left iliac crest mildly higher than the right; B flat feet and he reports arthritis in feet and more noticeable on the left, increased Sapphire angle , greater on the right. Very limited B SB, greater to the left and scar left side lumbar area; flexion with fingers almost one foot off the ground, normal posture with trunk mildly flexed over pelvis and active extension moves posture into neutral and pt reports increased left thigh pain PT-OP-K Range of Motion Start: 10/28/23 07:26 Freq: Status: Active Protocol: Document 10/29/23 08:19 MB (Rec: 10/29/23 08:56 MB [id number]) Hip Goniometric Range of Motion Hip ROM Limitations Comments SLR passive: right to 50 deg and left to 40 deg PT-OP-M Strength Start: 10/28/23 07:26 Freq: Status: Active Protocol: Document 10/29/23 08:19 MB (Rec: 10/29/23 08:56 MB [id number]) Hip Strength Hip Manual Muscle Testing Left Flexion (L2) 4- Good- Extension (S1) 4 Good Abduction 4 Good Adduction 4 Good Right Flexion (L2) 4+ Good+ Extension (S1) 4 Good Abduction 4+ Good+ Adduction 4+ Good+ Comments All MMT in supine Knee Strength Knee Manual Muscle Testing Left Flexion (S2) 5 Normal Extension (L3) 4+ Good+ Comments *with MMT knee, left great toe curls into flexion Right Flexion (S2) 5 Normal Extension (L3) 5 Normal Ankle/Foot Strength Ankle and Foot Manual Muscle Testing Left Dorsiflexion (L4) 5 Normal Right Dorsiflexion (L4) 5 Normal Toe Strength Toe Manual Muscle Testing Left Great Toe Extension 5 Normal Right Great Toe Extension 5 Normal Comments B plantar feet numbness PT-OP-Q Treatments Start: 10/28/23 07:26 Freq: Status: Active Protocol: Document 12/24/23 09:50 MB (Rec: 12/24/23 10:27 MB [id number]) Therapeutic Exercises Supine Exercises Core Supine Exercise Name Pelvic tilt and abdominal drawing in today in hook lying Side bilateral Reps/Minutes Many reps each Comments HS, Gentle knee rocking, mini march, knee fall out Raz stretch Side bilateral Reps/Minutes 2 reps each leg, about 45 sec Comments Opposite leg to chest MWM hamstring and calf stretch Side bilateral Equipment Used Towel behind thigh Reps/Minutes 30 APs per leg Hip rotator stretch Side bilateral Reps/Minutes 1 rep each leg, 30 sec hold Hook lying clam Side bilateral Resistance Level 3 band at thighs Reps/Minutes 10 reps Comments Tip pelvis and abdominal drawying in Pelvic realignment exercises Side bilateral Reps/Minutes 5 reps, 3 sec hold all exercises Comments Feet together ball squeeze, knee opp ankle iso, thigh press down Sitting Exercises Otago LAQ Sitting Exercise Name reviewed HEP Side bilateral Equipment Used 2 lb weight Reps/Minutes 30 reps alternating [place] sit stand Equipment Used Mesh chair and arms across chest Comments 25 reps Standing Exercises [place] Hamstring curls Side bilateral Equipment Used 2 lb ankle weights Reps/Minutes Several alternating reps Comments Hold onto chair [place] Heel raises Side bilateral Reps/Minutes 30 reps Comments UE hands on wall Ot[place] hip abd Side bilateral Reps/Minutes 2 lb Comments Several alternating reps, hold chair Calf stretch Side bilateral Comments 30 sec soleus and 30 sec gastroc, both legs Heel raises Side bilateral Comments Wall, 30 reps both legs together, UE support on wall PT-OP-T Assessment and Plan Start: 10/28/23 07:26 Freq: Status: Active Protocol: Document 12/24/23 09:50 MB (Rec: 12/24/23 10:27 MB [id number]) Physical Therapy Assessment Goals 3 Impairment Need for HEP review and progression Assembler Tester Goal (LTG) Pt will perform progressive HEP with I including pelvic realignment, flexibility, balance and core and LE strengthening exercises to improve pain and strength. 12/08/23: pelvis realignment, stretching HS with AP/ piriformis/Raz stretch/ resisted hooklying clamshell; resisted STS, stand: gastroc/ soleus stretch/HRTR LTG Duration 8 weeks 2 Impairment Evidence of imbalance and c/o fatigue with increased gait distance Residential Goal (LTG) Pt will gait train at least 1300 feet in 6 minutes to improve community ambulation and functional leg strength when spine loaded. 12/08/23: progressin ft in 6 min. 30% R foot scuffing floor and 4 instances R toe caught floor tripping but self recovery, close SBA provide. LTG Duration 8 weeks 1 Impairment Oswestry reflects 24% impairment Assembler Tester Goal (LTG) Pt will present with Oswestry to reflect no more than 15% impairment to improve quality of life and pain. 12/08/23: 11/50 or 22/100=22% impairement LTG Duration 8 weeks progression 12/08/23 Assessment Summary Assessment Discharged prone stomach stretch in pt with abdomen larger and s/p back surgery. He is doing Raz stretch in hook lying and this should take care of hip flexor and quad in a safe way. Exercise review today and con't Otago review and progression. Physical Therapy Plan Frequency and Duration Frequency of Treatment 2x/Week Duration of treatment (weeks) 8 Plan of Care Start Date 12/08/23 Plan of Care End Date 01/10/24 Therapeutic Interventions Therapeutic Interventions Balance Training,Canalithic Repositioning,Gait Training, Home Exercise Program,Joint Mobilizations,Manual Therapy, Neuromuscular Re-education, Patient/Caregiver Education, Self-Care/Home Management,Soft Tissue Mobilization,Taping, Therapeutic Activities, Therapeutic Exercises Modalities Cold Pack/Ice Massage,Electric Stimulation,Hot Packs, Ultrasound Next Visit Focus/Plan Next Note Type Treatment Note Next Visit Plan Assess response to progressed Ot[place] and hip extension standing and addition of seated ankle DF and eversion with band in sitting. Continue progress per PT POC.
--- NOTE | 2023-12-29 09:46 | PT.OTN ---
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 Pt reports progressive history of feet going numb and sciatic pain. 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 Pt got PT in [place]. He brings in exercises. He was getting better and then he began to reverse. A week and a half ago, a pipe burst in the house and he was pulling up pipe and he has no place to exercise. Pt saw pain specialist and they are talking about doing injections starting November 19. Generally, he sleeps pretty good. He does not use pillow support between legs. Prior Treatments and Tests Laminectomy, PT Treatment Goals Patient/Caregiver Goals Decrease the pain and to return to strengthening PT-OP-C Subjective Start: 10/28/23 07:26 Freq: Status: Active Protocol: Document 12/29/23 09:03 SP (Rec: 12/29/23 09:53 SP [id number]) OP-PT Subjective Patient Comments Patient Comments Pt reports walking about 2 mile /c SPC in RUE (feel better than trek pole as needed for unload LLE hip), LB tight end day after so took Tylenol and loosened up. Pt bought a 65 cm tball knowing asked if had one, thought could learn how to use for exercises. Hasn't blown up yet . PT-OP-G Mobility & Gait Start: 10/28/23 07:26 Freq: Status: Active Protocol: Document 10/29/23 08:19 MB (Rec: 10/29/23 08:56 MB [id number]) OP Gait Assessment Comments Gait Comments Gait assessment: pt does not always clear right foot and he presents with little arm swing and pelvic movement with gait as well as descreased step-length with gait PT-OP-J Posture/Palpation/Skin Start: 10/28/23 07:26 Freq: Status: Active Protocol: Document 10/29/23 08:19 MB (Rec: 10/29/23 08:56 MB [id number]) Posture Evaluation Comments Posture Comments Standing in barefoot: lower thoracic and upper lumbar hypertension, protrusion at paraspinal muscles and no real convexity right or left; right inferior scapula lower than the left; mild left convexity mid thoracic spine; left iliac crest mildly higher than the right; B flat feet and he reports arthritis in feet and more noticeable on the left, increased Sapphire angle , greater on the right. Very limited B SB, greater to the left and scar left side lumbar area; flexion with fingers almost one foot off the ground, normal posture with trunk mildly flexed over pelvis and active extension moves posture into neutral and pt reports increased left thigh pain PT-OP-K Range of Motion Start: 10/28/23 07:26 Freq: Status: Active Protocol: Document 10/29/23 08:19 MB (Rec: 10/29/23 08:56 MB [id number]) Hip Goniometric Range of Motion Hip ROM Limitations Comments SLR passive: right to 50 deg and left to 40 deg PT-OP-M Strength Start: 10/28/23 07:26 Freq: Status: Active Protocol: Document 10/29/23 08:19 MB (Rec: 10/29/23 08:56 MB [id number]) Hip Strength Hip Manual Muscle Testing Left Flexion (L2) 4- Good- Extension (S1) 4 Good Abduction 4 Good Adduction 4 Good Right Flexion (L2) 4+ Good+ Extension (S1) 4 Good Abduction 4+ Good+ Adduction 4+ Good+ Comments All MMT in supine Knee Strength Knee Manual Muscle Testing Left Flexion (S2) 5 Normal Extension (L3) 4+ Good+ Comments *with MMT knee, left great toe curls into flexion Right Flexion (S2) 5 Normal Extension (L3) 5 Normal Ankle/Foot Strength Ankle and Foot Manual Muscle Testing Left Dorsiflexion (L4) 5 Normal Right Dorsiflexion (L4) 5 Normal Toe Strength Toe Manual Muscle Testing Left Great Toe Extension 5 Normal Right Great Toe Extension 5 Normal Comments B plantar feet numbness PT-OP-Q Treatments Start: 10/28/23 07:26 Freq: Status: Active Protocol: Document 12/29/23 09:03 SP (Rec: 12/29/23 09:53 SP [id number]) Gym Equipment Therapeutic Ball pelvic rocking Exercise Details fwd, lateral Ball Size/Color 65cm Comments contact rail Max cues for isolation no knee or trunk rocking, just pelvis - challenge but improved to occasional cues with reps progression. Will revisit next tx if beneficial to perform home or return tball. Therapeutic Exercises Supine Exercises Core Supine Exercise Name Pelvic tilt and abdominal drawing in hook lying Side bilateral Resistance AROM Reps/Minutes review warm up: 10 reps each Comments Heel Slide, Gentle knee rocking, mini july (), knee fall out- altern. Raz stretch Supine Exercise Name reviewed and performed home this am Side bilateral Reps/Minutes 2 reps each leg (home, only 1 today), about 45 sec Comments Opposite leg to chest MWM hamstring and calf stretch Supine Exercise Name reviewed Side bilateral Equipment Used Towel behind thigh Reps/Minutes 30 APs per leg Hip rotator stretch Supine Exercise Name piriformis 12/28- reviewed Side bilateral Equipment Used ankle over opposite knee/knee toward opp shoulder Reps/Minutes 1 rep each leg, 30 sec hold Comments good posterior hip stretch Sitting Exercises ankle DF & EV Sitting Exercise Name initiated invPT Side bilateral Resistance TB #2 aqua green Reps/Minutes x20 reps Comments educated, good form Otago LAQ Sitting Exercise Name reviewed HEP Side bilateral Equipment Used 2 lb weight Reps/Minutes 30 reps alternating [place]ago sit stand Equipment Used Mesh chair and arms across chest Comments 25 reps Standing Exercises Hip Ext Standing Exercise Name reviewed Side bilateral Resistance 2 lb ankle weights Equipment Used hold back chair Reps/Minutes 30 alternating Comments cued tall closer to chair, TA, no LB recruitment [place] Hamstring curls Side bilateral Resistance 2 lb ankle weights Equipment Used Hold onto chair Reps/Minutes 30 reps alternating Comments good form [place] hip abd Side bilateral Resistance 2 lb ankle weights Equipment Used Hold onto chair Reps/Minutes 30 reps alternating Comments cued elongated posture, TA, not tilt back PT-OP-T Assessment and Plan Start: 10/28/23 07:26 Freq: Status: Active Protocol: Document 12/29/23 09:03 SP (Rec: 12/29/23 09:53 SP [id number]) Physical Therapy Assessment Goals 3 Impairment Need for HEP review and progression Laundry Tech Goal (LTG) Pt will perform progressive HEP with I including pelvic realignment, flexibility, balance and core and LE strengthening exercises to improve pain and strength. 12/08/23: pelvis realignment, stretching HS with AP/ piriformis/Raz stretch/ resisted hooklying clamshell; resisted STS, stand: gastroc/ soleus stretch/HRTR LTG Duration 8 weeks 2 Impairment Evidence of imbalance and c/o fatigue with increased gait distance Fpc Goal (LTG) Pt will gait train at least 1300 feet in 6 minutes to improve community ambulation and functional leg strength when spine loaded. 12/08/23: progressin ft in 6 min. 30% R foot scuffing floor and 4 instances R toe caught floor tripping but self recovery, close SBA provide. LTG Duration 8 weeks 1 Impairment Oswestry reflects 24% impairment Laundry Tech Goal (LTG) Pt will present with Oswestry to reflect no more than 15% impairment to improve quality of life and pain. 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 Trialed in PT only seated pelvic tilts, max cues for isolated performance fwd/bwd/lateral /c contact rail safety 1st time ever using tball, tends to use legs and trunk, improved with tactile cues and demonstration to model. Discussed will review again with PT next tx if potential benefits or can return ball. Cues for TA during standing HEP assisted inhibition of LB recruitment during LE ext and ABD. Good tolerance to use weights, awaiting his had purchased online for carryover. Pt discussed will be ready to DC to HEP by end of scheduled visits. Physical Therapy Plan Frequency and Duration Frequency of Treatment 2x/Week Duration of treatment (weeks) 8 Plan of Care Start Date 12/08/23 Plan of Care End Date 01/10/24 Therapeutic Interventions Therapeutic Interventions Balance Training,Canalithic Repositioning,Gait Training, Home Exercise Program,Joint Mobilizations,Manual Therapy, Neuromuscular Re-education, Patient/Caregiver Education, Self-Care/Home Management,Soft Tissue Mobilization,Taping, Therapeutic Activities, Therapeutic Exercises Modalities Cold Pack/Ice Massage,Electric Stimulation,Hot Packs, Ultrasound Next Visit Focus/Plan Next Note Type Treatment Note Next Visit Plan 3 more tx then DC to HEP. Tball review (purchased 1 for home, wants to know how to use ), recheck added ankle DF& EV. Assess response to progressed [place] and hip extension standing with 2lb wts. Continue progress per PT POC.
--- NOTE | 2023-12-31 10:29 | PT.OTN ---
Current Diagnoses Other chronic pain (12/31/23) Low back pain, unspecified (12/31/23) Physical Therapy Treatment Note PT-OP-A Visit Information Start: 10/28/23 07:26 Freq: Status: Active Protocol: Document 12/31/23 09:47 MB (Rec: 12/31/23 10:29 MB [id number]) Out-Patient Physical Therapy Visit Information Visit Information Visit Type Treatment Note Visit Note Medicare, Progress note by 01/07 Visit Start Time 09:47 Visit Stop Time 10:27 Visit Number 14 Number of POCKET SETTER LOCKSTITCH Visits 2 Evaluation Information Evaluation Date 10/29/23 Precautions Precautions Lami L2-14 July 2023 PT-OP-B Current Condition Start: 10/28/23 07:26 Freq: Status: Active Protocol: Document 10/29/23 08:19 MB (Rec: 10/29/23 08:56 MB [id number]) Current Condition History of Current Condition Onset Date Back surgery July 2023 Current Complaints Leg fatigue and left SI pain and anterior left thigh pain History of Current Condition Pt reports laminectomy L2,3,4 in [place] in July of this year. Pt reports progressive history of feet going numb and sciatic pain. 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 Pt got PT in [place]. He brings in exercises. He was getting better and then he began to reverse. A week and a half ago, a pipe burst in the house and he was pulling up pipe and he has no place to exercise. Pt saw pain specialist and they are talking about doing injections starting November 19. Generally, he sleeps pretty good. He does not use pillow support between legs. Prior Treatments and Tests Laminectomy, PT Treatment Goals Patient/Caregiver Goals Decrease the pain and to return to strengthening PT-OP-C Subjective Start: 10/28/23 07:26 Freq: Status: Active Protocol: Document 12/31/23 09:47 MB (Rec: 12/31/23 10:29 MB [id number]) OP-PT Subjective Patient Comments Patient Comments Pt states that he does think he is better than a year ago. He is occasionally walking up to 2 miles without a cane. He is dancing some and does limp off the dance floor after a couple of dances. He has been doing the Otago exercises. He still hasn't blown up therapy ball. Pt has last about 8 lbs in the last couple of months. Pt does state that the lumbar injection is still on in two weeks. He has not gotten a hold of neurosurgeon in [place] yet . PT-OP-G Mobility & Gait Start: 10/28/23 07:26 Freq: Status: Active Protocol: Document 10/29/23 08:19 MB (Rec: 10/29/23 08:56 MB [id number]) OP Gait Assessment Comments Gait Comments Gait assessment: pt does not always clear right foot and he presents with little arm swing and pelvic movement with gait as well as descreased step-length with gait PT-OP-J Posture/Palpation/Skin Start: 10/28/23 07:26 Freq: Status: Active Protocol: Document 10/29/23 08:19 MB (Rec: 10/29/23 08:56 MB [id number]) Posture Evaluation Comments Posture Comments Standing in barefoot: lower thoracic and upper lumbar hypertension, protrusion at paraspinal muscles and no real convexity right or left; right inferior scapula lower than the left; mild left convexity mid thoracic spine; left iliac crest mildly higher than the right; B flat feet and he reports arthritis in feet and more noticeable on the left, increased Sapphire angle , greater on the right. Very limited B SB, greater to the left and scar left side lumbar area; flexion with fingers almost one foot off the ground, normal posture with trunk mildly flexed over pelvis and active extension moves posture into neutral and pt reports increased left thigh pain PT-OP-K Range of Motion Start: 10/28/23 07:26 Freq: Status: Active Protocol: Document 10/29/23 08:19 MB (Rec: 10/29/23 08:56 MB [id number]) Hip Goniometric Range of Motion Hip ROM Limitations Comments SLR passive: right to 50 deg and left to 40 deg PT-OP-M Strength Start: 10/28/23 07:26 Freq: Status: Active Protocol: Document 10/29/23 08:19 MB (Rec: 10/29/23 08:56 MB [id number]) Hip Strength Hip Manual Muscle Testing Left Flexion (L2) 4- Good- Extension (S1) 4 Good Abduction 4 Good Adduction 4 Good Right Flexion (L2) 4+ Good+ Extension (S1) 4 Good Abduction 4+ Good+ Adduction 4+ Good+ Comments All MMT in supine Knee Strength Knee Manual Muscle Testing Left Flexion (S2) 5 Normal Extension (L3) 4+ Good+ Comments *with MMT knee, left great toe curls into flexion Right Flexion (S2) 5 Normal Extension (L3) 5 Normal Ankle/Foot Strength Ankle and Foot Manual Muscle Testing Left Dorsiflexion (L4) 5 Normal Right Dorsiflexion (L4) 5 Normal Toe Strength Toe Manual Muscle Testing Left Great Toe Extension 5 Normal Right Great Toe Extension 5 Normal Comments B plantar feet numbness PT-OP-Q Treatments Start: 10/28/23 07:26 Freq: Status: Active Protocol: Document 12/31/23 09:47 MB (Rec: 12/31/23 10:29 MB [id number]) Gym Equipment Therapeutic Ball pelvic rocking Comments Re-ed pt in use of therapy ball for sitting at home Therapeutic Exercises Supine Exercises Core Comments Verbally reviewed today Raz stretch Comments Verbally reviewed today MWM hamstring and calf stretch Comments Verbally reviewed today Hip rotator stretch Comments Verbally reviewed today Hook lying clam Comments Verbally reviewed today Pelvic realignment exercises Comments Verbally reviewed today Sitting Exercises ankle DF & EV Comments Verbally reviewed today Therapy ball sitting Comments Pt got ball and will start sitting on it after inflating it at home Otago LAQ Comments Verbally reviewed today Otago sit stand Comments Verbally reviewed today Standing Exercises Hip Ext Comments Verbally reviewed today Otago Hamstring curls Comments Verbally reviewed today Otago Heel raises Comments Verbally reviewed today Otago hip abd Comments Verbally reviewed today Calf stretch Comments Verbally reviewed today Gait Training Gait Activity Gait throughout treatment Comments See comments above 6MWT Comments See findings under goals today . Speed starts strong as well as arm swing and then both slow down and no scuffing of feet today. L LBP increases with increased gait distance PT-OP-T Assessment and Plan Start: 10/28/23 07:26 Freq: Status: Active Protocol: Document 12/31/23 09:47 MB (Rec: 12/31/23 10:29 MB [id number]) Physical Therapy Assessment Goals 3 Impairment Need for HEP review and progression Beater Boss Goal (LTG) Pt will perform progressive HEP with I including pelvic realignment, flexibility, balance and core and LE strengthening exercises to improve pain and strength. 12/08/23: pelvis realignment, stretching HS with AP/ piriformis/Raz stretch/ resisted hooklying clamshell; resisted STS, stand: gastroc/ soleus stretch/HRTR 12/31/23: Pt is performing most exercises at home but not the [place]ago ones as much. LTG Duration Progressed 2 Impairment Evidence of imbalance and c/o fatigue with increased gait distance Fpc Goal (LTG) Pt will gait train at least 1300 feet in 6 minutes to improve community ambulation and functional leg strength when spine loaded. 12/08/23: progressin ft in 6 min. 30% R foot scuffing floor and 4 instances R toe caught floor tripping but self recovery, close SBA provide. 12/31/23: Pt gait trains 1343 feet in 6 minutes and he reports 4/10 left LBP after gait and he has a little left leg pain, too, into hip and anterior left thigh LTG Duration Met 1 Impairment Oswestry reflects 24% impairment Beater Boss Goal (LTG) Pt will present with Oswestry to reflect no more than 15% impairment to improve quality of life and pain. 12/08/23: 11/50 or 22/100=22% impairement 12/31/23: Pt does have trouble answering some of the questions as they do not appear to apply as much and score reflects 26% impairment. LTG Duration Not improved Assessment Summary Assessment Reviewed exercises and performed 6MWT today and gait throughout treatment. Pt as plenty of exercises for home and has met 6MWT goal. He con' t with LB and left leg pain and is following up with pain doctor and surgeon. Will d/c PT. Physical Therapy Plan Frequency and Duration Frequency of Treatment 2x/Week Duration of treatment (weeks) 8 Plan of Care Start Date 12/08/23 Plan of Care End Date 01/10/24 Therapeutic Interventions Therapeutic Interventions Balance Training,Canalithic Repositioning,Gait Training, Home Exercise Program,Joint Mobilizations,Manual Therapy, Neuromuscular Re-education, Patient/Caregiver Education, Self-Care/Home Management,Soft Tissue Mobilization,Taping, Therapeutic Activities, Therapeutic Exercises Modalities Cold Pack/Ice Massage,Electric Stimulation,Hot Packs, Ultrasound
== END 2024-01-16 10:43 | disposition home or self-care (01) ==
LOC: PHYS 09:45
PROVIDERS: Family Provider Family Medicine; PCP Family Medicine; Referring Provider Family Medicine; Visit Provider Family Medicine
DX: M54.50 Low back pain, unspecified (principal); G89.29 Other chronic pain
CPT/HCPCS: 97110; 97116; 97140; 97161; 97535

== ENCOUNTER → 2024-01-28 13:20 | Outpatient (CLI) | payer MEDICARE, BC, SELFPAY ==
[2024-01-28 14:27] LABS: Add Manual Diff / Slide Review NO; Basophils Absolute Auto 0 /uL (0-100); Basophils Percent Auto 0.4 % (0-2); Eosinophils Absolute Auto 200 /uL (0-450); Eosinophils Percent Auto 2.6 % (2-4); Hematocrit 40.2 % (41-53); Hemoglobin 13.7 g/dL (13.5-17.5); Lymphocytes Absolute Auto 1100 /uL (1100-4500); Lymphocytes Percent Auto 16.4 % (25-40); Mean Corpuscular HGB Conc 34.1 % (30-36); Mean Corpuscular Hemoglobin 33.8 PG (26-34); Mean Corpuscular Volume 99.1 fL (80-100); Monocytes Absolute Auto 600 /uL (0-900); Monocytes Percent Auto 9.8 % (3-14); Neutrophils Absolute Auto 4600 /uL (1500-7000); Neutrophils Percent Auto 70.8 % (50-75); Platelet Count 333 X10^3/uL (150-400); Red Blood Cell Count 4.05 X10^6/uL (4.5-5.9); Red Cell Distribution Width 13.8 % (11.6-14.8); White Blood Cell Count 6.5 X10^3/uL (4.5-11.0)
[2024-01-28 14:54] LABS: BUN Creatinine Ratio 17.5 (6-22); Blood Urea Nitrogen 17 mg/dL (9-20); Calcium 9.8 mg/dL (8.4-10.2); Carbon Dioxide 24 mmol/L (22-32); Chloride 103 mmol/L (98-107); Estimated Glomerular Filt Rate > 60 mL/min (>60); Glucose 93 mg/dL (80-110); HEMOLYSIS < 15 (0-50); Potassium 5.2 mmol/L (3.4-5.1); Sodium 136 mmol/L (137-145)
== END ==
PROVIDERS: Family Provider Family Medicine; PCP Family Medicine; Referring Provider Family Medicine; Visit Provider Family Medicine
DX: R53.82 Chronic fatigue, unspecified (principal); D64.9 Anemia, unspecified; E87.5 Hyperkalemia; Z87.891 Personal history of nicotine dependence
CPT/HCPCS: 36415; 80048; 85025

== ENCOUNTER → 2024-02-23 11:03 | Outpatient (CLI) | payer MEDICARE, BC, SELFPAY ==
--- NOTE | 2024-02-23 11:04 | DI.US.S_ITS ---
PROCEDURE: US ABD AORTA ANEURYSM SCREEN INDICATIONS: screening TECHNIQUE: Real time scanning was performed of the aorta and iliac arteries, with image documentation. COMPARISON: None. FINDINGS: Aorta: Proximal aortic diameter measures 2.8 x 2.4 cm. Mid-aorta measures 1.7 x 1.8 cm. Distal aortic diameter is 1.7 x 2 cm. Iliac arteries: Right common iliac artery measures 1.2 cm. Left common iliac artery measures 1.2 cm. Dense calcification can be seen involving the junctions between the aorta and the common iliac arteries. There is increased flow velocity seen on the right measuring 280 centimeters/second and increased flow velocity seen on the left measuring 420 centimeters/second. IMPRESSION: Negative for aneurysm. Dense calcification with focal stenoses by velocity criteria at the junctions between the aorta and the common iliac arteries. - Please consider follow-up CT angiogram for further evaluation. Dictated by: Humphrey Escobedo M.D. on 02/23/2024 at 11:17 Approved by: Humphrey Escobedo M.D. on 02/23/2024 at 11:18
--- NOTE | 2024-02-23 11:04 | DI.CT.S_ITS ---
PROCEDURE: CT LUNG LOW DOSE SCREENING INDICATIONS: 35 pack year TECHNIQUE: Noncontrast 2.0-2.5 mm thick sections acquired from the pulmonary apices to the posterior costophrenic angles. 7 mm thick axial MIP, and 5 mm coronal and sagittal reformats were then acquired. For radiation dose reduction, the following was used: automated exposure control, adjustment of mA and/or kV according to patient size. COMPARISON: None. FINDINGS: Image quality: Diagnostic. Lower Neck: No enlarged lymph nodes. Thyroid: No thyroid nodules which require sonographic follow up, per consensus guidelines. Axillae: No enlarged lymph nodes. Chest Wall: Unremarkable. Bones: Degenerative changes of the spine. Lungs and Pleura: No pneumothorax or pleural effusions. Mild emphysematous changes. Scattered pulmonary micro nodules measuring 3 mm or less. For example in the right lower lobe (3/). Heart: Heart size is normal. Severe coronary artery calcifications. Trace pericardial effusion. Thoracic Vessels: The aorta and pulmonary arteries demonstrate normal size. Atherosclerotic vascular calcifications. Mediastinum and Sirisha: No enlarged lymph nodes. Esophagus: No wall thickening. No hiatal hernia. Upper Abdomen: Visualized upper abdomen solid organs and bowel loops appear normal. IMPRESSION: Scattered pulmonary micro nodules measuring 3 mm or less. LUNG-RADS 2; continued annual screening, if eligible. Clinically Significant Non-pulmonary Findings: Severe coronary artery calcifications. Dictated by: Jaylon Ybarra M.D. on 02/23/2024 at 15:28 Approved by: Jaylon Ybarra M.D. on 02/23/2024 at 15:31
== END ==
PROVIDERS: Family Provider Family Medicine; PCP Family Medicine; Referring Provider Family Medicine; Visit Provider Family Medicine
DX: Z12.2 Encounter for screening for malignant neoplasm of respiratory organs (principal); Z13.6 Encounter for screening for cardiovascular disorders; Z87.891 Personal history of nicotine dependence; I70.0 Atherosclerosis of aorta; I70.8 Atherosclerosis of other arteries; I25.10 Atherosclerotic heart disease of native coronary artery without angina pectoris; R91.8 Other nonspecific abnormal finding of lung field; R53.82 Chronic fatigue, unspecified; D64.9 Anemia, unspecified
CPT/HCPCS: 71271; 76706

== ENCOUNTER → 2024-10-07 12:22 | Outpatient (CLI) | payer MEDICARE, BC, SELFPAY ==
--- NOTE | 2024-10-07 12:24 | DI.MRI.S_ITS ---
PROCEDURE: MR THORACIC SPINE WO CON INDICATIONS: lumbar radiculopathy- spinal cord stimulator eval TECHNIQUE: Noncontrast sagittal T1 spine echo and T2 fast spin echo, sagittal STIR, and T2 fast spin echo through the thoracic spine. COMPARISON: None. FINDINGS: Image quality: Excellent. Alignment and Curvature: There is normal bony alignment. Bone Marrow: Marrow is of normal overall signal. No acute vertebral body compression fractures. Spinal Cord: Visualized spinal cord is normal in size and signal. Paraspinous Soft Tissues: No paravertebral masses. Miscellaneous: On axial images, central canal and foramina appear widely patent at all scanned levels. IMPRESSION: Negative study. Dictated by: Francesca Unger M.D. on 10/07/2024 at 14:18 Approved by: Francesca Unger M.D. on 10/07/2024 at 14:21
== END ==
PROVIDERS: Family Provider Family Medicine; PCP Family Medicine; Referring Provider Acupuncturist; Visit Provider Acupuncturist
DX: M54.16 Radiculopathy, lumbar region (principal)
CPT/HCPCS: 72146

== ENCOUNTER → 2024-11-30 12:10 | Outpatient (CLI) | payer MEDICARE, BC, SELFPAY ==
--- NOTE | 2024-11-30 12:12 | DI.CT.S_ITS ---
PROCEDURE: CT LUNG LOW DOSE SCREENING INDICATIONS: screening, f/u on nodules TECHNIQUE: Noncontrast 2.0-2.5 mm thick sections acquired from the pulmonary apices to the posterior costophrenic angles. 7 mm thick axial MIP, and 5 mm coronal and sagittal reformats were then acquired. For radiation dose reduction, the following was used: automated exposure control, adjustment of mA and/or kV according to patient size. COMPARISON: [facility], CT, CT LUNG LOW DOSE SCREENING, 02/23/2024, 11:29. FINDINGS: Image quality: Diagnostic. Lower Neck: No enlarged lymph nodes. Thyroid: No thyroid nodules which require sonographic follow up, per consensus guidelines. Axillae: No enlarged lymph nodes. Chest Wall: Unremarkable. Bones: No suspicious osseous lesion. Lungs and Pleura: No pneumothorax or pleural effusions. Mild emphysematous change. The central airways are clear. No acute airspace opacity. -Right pleural apical scarring is unchanged. -Right upper lobe juxta minor fissure pulmonary nodule measuring 0.3 cm, (3/170), unchanged. Heart: Heart size is normal. Three-vessel coronary artery calcifications. No pericardial effusion. Thoracic Vessels: The aorta and pulmonary arteries demonstrate normal size. Mediastinum and Sirisha: No enlarged lymph nodes. Esophagus: No wall thickening. No hiatal hernia. Upper Abdomen: Visualized upper abdomen solid organs and bowel loops appear normal. IMPRESSION: No suspicious pulmonary nodules. LUNG-RADS 2; continued annual screening, if eligible. Clinically Significant Non-pulmonary Findings: Moderate to severe coronary artery calcifications. Dictated by: Alexx Godfrey M.D. on 12/01/2024 at 13:49 Approved by: Alexx Godfrey M.D. on 12/01/2024 at 13:55
== END ==
LOC: CT 12:12
PROVIDERS: Family Provider Family Medicine; PCP Family Medicine; Referring Provider Family Medicine; Visit Provider Family Medicine
DX: Z12.2 Encounter for screening for malignant neoplasm of respiratory organs (principal); Z87.891 Personal history of nicotine dependence; R91.1 Solitary pulmonary nodule; I25.10 Atherosclerotic heart disease of native coronary artery without angina pectoris
CPT/HCPCS: 71271